=== PATIENT | male | born 1960 | race Caucasian/White ===

== ENCOUNTER 2020-08-15 09:12 | Outpatient (REF) | payer OTHER, SELFPAY | END 2020-08-15 09:13 | disposition home or self-care (01) | LOC: HO.LAB 09:12 | PROVIDERS: Visit Provider Internal Medicine | DX: Z20.822 Contact with and (suspected) exposure to COVID-19 (principal) | CPT/HCPCS: 36415; C9803; U0003 ==

== ENCOUNTER 2020-10-04 16:29 | Emergency (ER) | payer OTHER, SELFPAY ==
[2020-10-04 16:54] VITALS: BP 159/86; BP 166/86; PULSE 73; PULSE 76; RESP 17; TEMP 36.1; O2SAT 95; O2SAT 97; BMI 22.8
[2020-10-04 17:08] VITALS: BP 159/86; PULSE 73; RESP 17; TEMP 36.1; O2SAT 95
--- NOTE | 2020-10-04 17:34 | ED.GENADULT ---
HPI - General Adult General Chief complaint: General Medical Stated complaint: substance abuse, seeking detox Source: patient Mode of arrival: ambulatory Limitations: no limitations History of Present Illness HPI narrative: Patient presents to ED due to request for detox from benzos and heroin. Patient states he was clean and then started using heroin and Xanax today. Patient denies any other drug use or alcohol use. Patient states no suicidal ideation. Related Data Allergies Allergy/AdvReac Type Severity Reaction Status Date / Time cephalexin [From KEFLEX] Allergy Intermediate HIVES Unverified 04/24/20 15:38 sulfamethoxazole Allergy Intermediate HIVES Unverified 04/24/20 15:38 [From BACTRIM] trimethoprim [From BACTRIM] Allergy Intermediate HIVES Unverified 04/24/20 15:38 prochlorperazine Allergy Unknown ANAPHYLAXIS Unverified 04/24/20 15:38 [From COMPAZINE] Review of Systems Review of Systems: Yes all other systems are reviewed and are negative Constitutional: Constitutional: Reports as per HPI and Reports no additional constitutional complaints Eyes: Eyes: Reports as per HPI and Reports no additional eye complaints ENT: Reports system reviewed and no additional complaints, except as documented and Reports as per HPI Cardiovascular: Cardiovascular: Reports as per HPI and Reports no additional cardiovascular complaints Respiratory: Respiratory: Reports as per HPI and Reports no additional respiratory complaints Gastrointestinal: Gastrointestinal: Reports as per HPI and Reports no additional gastrointestinal complaints Genitourinary: Genitourinary: Reports no additional male genitourinary complaints and Reports as per HPI Musculoskeletal: Musculoskeletal: Reports no additional musculoskeletal complaints and Reports as per HPI Neurologic: Reports system reviewed and no additional complaints, except as documented and Reports as per HPI Psychiatric: Psychiatric: Reports no additional psychiatric complaints and Reports as per HPI Endocrine: Endocrine: Reports no additional endocrine complaints and Reports as per HPI [facility] Social History Social History Alcohol intake: never Smoking Status: Never smoker Use of substances other than those prescribed or required for medical reasons: Yes Substance Use Type: Heroin Substance Use Frequency: Recent Binge Last Used Substance: Hours (ago) Advance Directives: No Advance Directives Information Provided: No Physical Exam Vital Signs: Vital Signs: Last Vital Signs Temp 97 F 10/04/20 17:08 Pulse 73 10/04/20 17:08 Resp 17 10/04/20 17:08 BP 159/86 H 10/04/20 17:08 Pulse Ox 95 10/04/20 17:08 Body Mass Index 22.8 Const: General: cooperative, healthy appearing, comfortable, no acute distress, well developed, alert, awake and Physically active Orientation/consciousness: patient oriented x3 HENMT: Head: Yes normal to inspection, Yes No palpable skull fracture present, Yes normocephalic, Yes atraumatic, No abrasion, No Corrales's sign, No contusion, No cranial bruits, No hematoma, No laceration, No occipital foramen tenderness, No palpable skull fracture, No raccoon eyes, No scalp lesion, No scalp tenderness, No Temporal artery tenderness present and No periorbital ecchymosis Eyes: General: appearance normal, both eyes and all related structures Neck: Neck: Yes normal visual inspection, Yes full ROM, Yes no lymphadenopathy, Yes no meningeal signs, Yes trachea midline, Yes supple and No tender Chest: Chest palpation & inspection: normal inspection of the chest and normal palpation of entire chest wall Resp: Effort & Inspection: normal respiratory effort and able to speak in complete sentences Auscultation: clear to auscultation bilaterally Cardio: Jugular venous distension: no JVD Heart sounds: S1 normal heart sound present and S2 normal heart sound present GI: Inspection: Yes normal to inspection and No abdominal wall ecchymosis Palpation (GI): Soft to palpation, not firm, nontender, no guarding and not rigid : General: No CVA tenderness and Yes no CVA tenderness Back/Spine/Pelvis: Back: no CVA tenderness, No CVA tenderness and No back tenderness Skin: General skin exam: no rashes or lesions noted and elasticity normal Neuro: General: patient oriented x3, no meningeal signs and CN's II-XI intact bilaterally Cranial nerves: Yes CN's II-XII intact bilaterally Extrem: General: Yes normal to inspection and Yes full ROM Psych: Appearance: grossly normal, well kempt and not disheveled Course Course Course Narrative: Patient will have U tox sent. Detox evaluated will speak to patient. Patient presently not suicidal homicidal. No crisis intervention indicated. Vital signs stable. Reevaluation(s) Reevaluation #1: PATIENT EVALUATED BY [facility] CALLED JESSICA. HE STATES PATIENT HAS [facility]BOX[facility] CLINIC APPOINTMENT TOMORROW. INTERIOR DESIGN PROFESSIONAL JESSICA gave PATIENT DETOX OUTPATIENT RESOURCE PROGRAM HE COULD CALL FOR INPATIENT AFTER HE IS EVALUATED AND SEEN [facility] CLINIC AND RECEIVING SUBOXONE. PATIENT IS AGREEABLE TO PLAN. Time: 19:52 Medical Decision Making MDM Narrative Medical decision making narrative: SUBSTANCE ABUSE Lab Data Labs: Lab Results 10/04/20 Range/Units 17:52 Urine Opiates Screen POSITIVE H (Not Detect) Ur Barbiturates Screen Not Detected (Not Detect) Ur Phencyclidine Scrn Not Detected (Not Detect) Ur Amphetamines Screen Not Detected (Not Detect) U Benzodiazepines Scrn POSITIVE H (Not Detect) Urine Cocaine Screen POSITIVE H (Not Detect) U Marijuana (THC) Screen POSITIVE H (Not Detect) Discharge Plan Discharge Clinical Impression: Substance abuse Patient Disposition: Home, Self-Care Instructions: Polysubstance Abuse (ED) Additional Instructions: RETURN TO THE ED IMMEDIATELY FOR SUICIDAL/HOMICIDAL IDEATION, WITHDRAWAL SYMPTOMS, OR ANY OTHER CONCERNING SYMPTOMS. PLEASE FOLLOW-UP WITH DETOX PROGRAM GIVEN TO YOU BY ASSOCIATE MEDIA DIRECTOR Interventions: ED Discharge Assessment Last Done: 10/04/20 20:39 Discharge Date/Time: 10/04/20 20:41 Print Language: Amharic
[2020-10-04 18:36] LABS: Amphetamine Screen Urine Not Detected (Not Detect); Barbiturates, Urine Not Detected (Not Detect); Benzodiazepines Screen Urine POSITIVE (Not Detect); Cannabinoid Screen Urine POSITIVE (Not Detect); Cocaine Screen Urine POSITIVE (Not Detect); Opiate Screen Urine POSITIVE (Not Detect); Phencyclidine Screen Urine Not Detected (Not Detect)
--- NOTE | 2020-10-04 19:25 | PC.NURSE ---
Ned at bedside speaking with patient. Pt seeking detox. GRETEL Jones.
--- NOTE | 2020-10-04 19:38 | MHC.RECOVSUP ---
? Reason for consult : Detox o Current location: ED17H o Identified substance use concern: Heroin - Seeking ATS (detox) - Support ? Intervention: o Community resources provided o Harm reduction discussion ? Plan: o Patient to follow up with [facility] after discharge ? Additional information: patient Came to the ED seeking Detox. But decided that tomorrow would be better. Patient is on MAT at [facility] and patient stated that he feel that it would be best for him to go there first before go to detox. So i have provided patient with [facility] info and advised Patient to follow up there..
== END 2020-10-04 20:41 | disposition home or self-care (01) ==
PROVIDERS: Physician Assistant; Emergency Provider Emergency Medicine; PCP Internal Medicine
DX: F11.10 Opioid abuse, uncomplicated (principal); F19.10 Other psychoactive substance abuse, uncomplicated
CPT/HCPCS: 80307; 99283; 99284

== ENCOUNTER 2021-02-20 19:59 | Emergency (ER) | payer OTHER, SELFPAY ==
[2021-02-20 20:07] VITALS: BP 155/91; BP 166/98; PULSE 87; PULSE 97; RESP 18; TEMP 36.6; O2SAT 98; O2SAT 99; BMI 21.9
--- NOTE | 2021-02-20 20:15 | ED.OVERDOSE ---
HPI - Overdose General Chief Complaint: Overdose Stated Complaint: od Time Seen by Provider: 02/20/21 20:15 Source: patient and family Mode of arrival: EMS Limitations: no limitations History of Present Illness HPI Narrative: Patient stated that he took 1 bag of heroin was not responding EMS gave 4 mg of nasal Narcan and 0.4 mg IV Narcan back to baseline alert oriented x3 no vomiting no shortness of breath has happened many times in the past Related Data Allergies Allergy/AdvReac Type Severity Reaction Status Date / Time cephalexin [From KEFLEX] Allergy Intermediate HIVES Unverified 04/24/20 15:38 sulfamethoxazole Allergy Intermediate HIVES Unverified 04/24/20 15:38 [From BACTRIM] trimethoprim [From BACTRIM] Allergy Intermediate HIVES Unverified 04/24/20 15:38 prochlorperazine Allergy Unknown ANAPHYLAXIS Unverified 04/24/20 15:38 [From COMPAZINE] Review of Systems Review of Systems: Yes all other systems are reviewed and are negative [facility] Past Medical History Medical History Substance abuse Social History Social History Alcohol intake: never Substance Use Type: Heroin Advance Directives: No Advance Directives Information Provided: No Physical Exam Vital Signs: Vital Signs: Last Vital Signs Temp 97.9 F 02/20/21 20:07 Pulse 87 02/20/21 20:07 Resp 18 02/20/21 20:07 BP 166/98 H 02/20/21 20:07 Pulse Ox 98 02/20/21 20:07 Body Mass Index 21.9 Appearance: Alert. Oriented X3. No acute distress. Eyes: PERRLA, No Nystagmus ENT: Pharynx normal. Oral Mucosa moist Neck: Normal inspection. Neck supple. CVS: Normal heart rate and rhythm. Pulses normal. Respiratory: No respiratory distress. Equal air entry bilateral, no wheezing/rales/rhonchi Abdomen: Soft and nontender. Bowel sounds are present Skin: Skin warm and dry. Normal skin color. Normal skin turgor. Extremities: No lower extremity edema. No calf tenderness Neuro: Oriented X 3. No motor deficit. No sensory deficit.No cerebellar signs , cranial nerves II-XII intact MDM - Overdose MDM Narrative Medical decision making narrative: Patient refused to stay in the ER is at bedside will give him Narcan to take home advised to keep an eye on the patient for 2 hours at least and if became drowsy given Narcan and bring to the ER aware of the plan discharge patient home Discharge Plan Discharge Clinical Impression: Opiate dependence Patient Disposition: Home, Self-Care Instructions: Narcotic Use Disorder (ED) Additional Instructions: Stop abusing heroin follow up with detox Interventions: ED Discharge Assessment Last Done: 02/20/21 20:22 Discharge Date/Time: 02/20/21 20:24
--- NOTE | 2021-02-20 20:21 | MHC.RECOVSUP ---
? Reason for consult Overdose o Current location: 22h o Identified substance use concern: heroin - Overdose <del>-</del> <del>Withdrawal</del> <del>-</del> <del>Seeking</del> <del>ATS</del> <del>(detox)</del> <del>-</del> <del>Support</del> ? Intervention: <del>o</del> <del>ATS</del> <del>bed</del> <del>search</del> <del>started/completed/in</del> <del>process</del> <del>o</del> <del>MAT</del> <del>started</del> <del>or</del> <del>to</del> <del>be</del> <del>started</del> <del>o</del> <del>Community</del> <del>resources</del> <del>provided</del> <del>o</del> <del>Harm</del> <del>reduction</del> <del>discussion</del> ? Plan: <del>o</del> <del>Referral</del> <del>to</del> <del>[facility]</del> <del>o</del> <del>Bed</del> <del>search</del> <del>in</del> <del>progress</del> <del>to</del> <del>o</del> <del>Follow</del> <del>up</del> <del>tomorrow</del> <del>o</del> <del>Patient</del> <del>awaiting</del> <del>crisis</del> <del>evaluation</del> <del>o</del> <del>Patient</del> <del>to</del> <del>follow</del> <del>up</del> <del>with</del> <del>[facility]</del> <del>after</del> <del>discharge</del> ? Additional information: Patient refused services
--- NOTE | 2021-02-20 20:23 | PC.NURSE ---
Recovery couch at bedside- pt declined detox.
== END 2021-02-20 20:24 | disposition home or self-care (01) ==
PROVIDERS: Emergency Provider Internal Medicine; PCP Internal Medicine
DX: F11.20 Opioid dependence, uncomplicated (principal)
CPT/HCPCS: 99283

== ENCOUNTER 2021-03-19 12:36 | Emergency (ER) | payer OTHER, SELFPAY ==
--- NOTE | 2021-03-19 12:45 | ED.OVERDOSE ---
HPI - Overdose General Chief Complaint: Overdose Stated Complaint: overdose Time Seen by Provider: 03/19/21 12:40 Source: patient and EMS Mode of arrival: EMS Limitations: no limitations History of Present Illness HPI Narrative: 60-year-old male with a past medical history of substance abuse. The patient tells me he sniffs some heroin today. He was found by EMS unresponsive. Required 4 mg of Narcan prior to arrival. On arrival alert and oriented. Heroin but will not quantify how much. He denies any additional substance use. He tells me he uses heroin multiple times in a week but not always daily. Not interested in detox. No physical complaints. Related Data Allergies Allergy/AdvReac Type Severity Reaction Status Date / Time cephalexin [From KEFLEX] Allergy Intermediate HIVES Unverified 04/24/20 15:38 sulfamethoxazole Allergy Intermediate HIVES Unverified 04/24/20 15:38 [From BACTRIM] trimethoprim [From BACTRIM] Allergy Intermediate HIVES Unverified 04/24/20 15:38 prochlorperazine Allergy Unknown ANAPHYLAXIS Unverified 04/24/20 15:38 [From COMPAZINE] Review of Systems Review of Systems: Yes all other systems are reviewed and are negative Constitutional: Constitutional: Reports no additional constitutional complaints, Denies body ache(s), Denies chills, Denies fever(s), Denies headache(s) and Denies weakness Eyes: Eyes: Reports no additional eye complaints and Denies change in vision ENT: Reports system reviewed and no additional complaints, except as documented, Denies dizziness, Denies headache(s), Denies nasal congestion, Denies nasal discharge and Denies neck pain Cardiovascular: Cardiovascular: Reports no additional cardiovascular complaints, Denies chest pain, Denies leg edema and Denies dyspnea Respiratory: Respiratory: Reports no additional respiratory complaints, Denies cough and Denies dyspnea Gastrointestinal: Gastrointestinal: Reports no additional gastrointestinal complaints, Denies abdominal pain, Denies diarrhea, Denies nausea and Denies vomiting Genitourinary: Genitourinary: Denies urinary incontinence Musculoskeletal: Musculoskeletal: Reports no additional musculoskeletal complaints, Denies back pain, Denies arthralgias, Denies joint swelling, Denies neck pain, Denies numbness and Denies tingling Integumentary/Breasts: Skin/Breast: Reports system reviewed and no additional complaints, except as docu and Denies rash Neurologic: Reports system reviewed and no additional complaints, except as documented, Denies Abnormal speech present, Denies dizziness, Denies headache(s), Denies numbness, Denies tingling and Denies weakness PMFSH Past Medical History Attestation statement: The following information was validated with the patient. Source: old records reviewed and nursing notes reviewed Medical History Substance abuse Social History Social History Alcohol intake: never Substance Use Type: Heroin Advance Directives: No Advance Directives Information Provided: Yes Physical Exam Vital Signs: Vital Signs: Last Vital Signs Temp 98.2 F 03/19/21 12:49 Pulse 83 03/19/21 12:49 BP 145/84 H 03/19/21 12:49 Pulse Ox 96 03/19/21 12:49 Body Mass Index 23.3 Const: General: cooperative, healthy appearing, comfortable and no acute distress Orientation/consciousness: patient oriented x3 Limitations: no limitations HENMT: Head: Yes normal to inspection Ears: hearing grossly normal bilaterally General nose exam: Normal external nose present Face and sinus: Yes normal facial exam Mouth: Normal oral and palatal mucosa present Throat: Yes posterior oropharynx normal Eyes: General: appearance normal, both eyes and all related structures Pupils: Equal, round and reactive pupils present Neck: Neck: Yes normal visual inspection Chest: Chest palpation & inspection: normal inspection of the chest Resp: Effort & Inspection: normal respiratory effort Auscultation: clear to auscultation bilaterally Cardio: Rate: regular rate Rhythm: regular rhythm Peripheral pulses: Peripheral pulses 2+ throughout GI: Inspection: Yes normal to inspection Palpation (GI): Soft to palpation and nontender Auscultation: normal bowel sounds Back/Spine/Pelvis: Thoracic/Lumbar Spine: thoracic and lumbar spine normal to inspection Skin: General skin exam: no rashes or lesions noted Neuro: General: patient oriented x3, no focal motor deficits and normal sensation to monofilament Cranial nerves: Yes Equal, round and reactive pupils present Cognition (Neuro): normal cognition Speech: No Abnormal speech present Gait exam (Neuro): Normal gait present Motor exam (neuro): 5/5 motor strength present throughout Extrem: General: Yes normal to inspection Course Course Course Narrative: 60-year-old male here after a heroin overdose that required Narcan in the field. Patient currently alert and oriented. No physical complaints. Not interested in detox resources. Vital signs are stable. Will monitor for brief time. -patient refused to stay in the emergency department for monitoring. He is alert oriented. He has stable vital signs. He walks with a steady gait. He was given Narcan for home. Reviewed worrisome signs and symptoms of when to return to the emergency department. Comfortable discharge home. MDM - Overdose Medical Records Attestation: I reviewed the patient's medical records. Lab Data Attestation: I reviewed the patient's lab results. Discharge Plan Discharge Clinical Impression: Drug overdose Patient Disposition: Home, Self-Care Instructions: Adult Overdose (ED), Narcotic Use Disorder (ED) Additional Instructions: You were offered assistance but he declined this Interventions: ED Discharge Assessment Last Done: 03/19/21 13:20 Discharge Date/Time: 03/19/21 13:21
[2021-03-19 12:49] VITALS: BP 145/84; BP 150/70; PULSE 100; PULSE 83; TEMP 36.8; O2SAT 96; O2SAT 98; BMI 23.3
[2021-03-19] MEDS: Naloxone HCl Nasal TAKE HOME 4 MG SPRAY NOSTRILALT (13:19)
== END 2021-03-19 13:21 | disposition home or self-care (01) ==
LOC: HO.ED 13:17
PROVIDERS: Emergency Provider Emergency Medicine; PCP Internal Medicine
DX: T40.1X1A Poisoning by heroin, accidental (unintentional), initial encounter (principal); R40.4 Transient alteration of awareness; Y92.410 Unspecified street and highway as the place of occurrence of the external cause; F19.10 Other psychoactive substance abuse, uncomplicated
CPT/HCPCS: 99283

== ENCOUNTER 2021-07-20 08:50 | Emergency (ER) | payer OTHER, SELFPAY ==
--- NOTE | 2021-07-20 08:49 | ED.OVERDOSE ---
HPI - Overdose General Chief Complaint: ETOH/Substance Use Stated Complaint: HEROIN OD,NARCNA GIVEN W/GOOD RESULT Time Seen by Provider: 07/20/21 09:24 Source: patient Mode of arrival: EMS Limitations: no limitations History of Present Illness HPI Narrative: 57-year-old male no known medical history presents to the emergency department with a heroin overdose with EMS. Patient's significant other called 911, as patient was unresponsive. Patient admits to sniffing 1 bag of heroin prior to his arrival. He tells me he has not used heroin in over 7 months. He tells me he did it because he found it around house. He has no suicidal or homicidal ideation. Patient has no complaints at this time he tells me he wants to leave. He denies depression or anxiety. No visual, auditory or tactile hallucinations. No medical concerns at this time. complaint: accidental overdose Onset (ago): minute(s) (20) Intent: unknown How Overdose Was Discovered: called family/friend Context: Intentional Overdose: other (denies) Context: Accidental Overdose: wanted to get high Treatments Prior to Arrival: narcan Related Data Previous Rx's Medication Instructions Recorded naloxone 4 mg/actuation nasal 4 mg INTRANASAL Q3M PRN #2 ea 07/20/21 spray (Narcan) Allergies Allergy/AdvReac Type Severity Reaction Status Date / Time cephalexin [From KEFLEX] Allergy Intermediate HIVES Unverified 04/24/20 15:38 sulfamethoxazole Allergy Intermediate HIVES Unverified 04/24/20 15:38 [From BACTRIM] trimethoprim [From BACTRIM] Allergy Intermediate HIVES Unverified 04/24/20 15:38 prochlorperazine Allergy Unknown ANAPHYLAXIS Unverified 04/24/20 15:38 [From COMPAZINE] Review of Systems Review of Systems: Constitutional : No Fever, No Chills ENT/Mouth : No sore throat, No Rhinorrhea Eyes: No Eye Pain, No Swelling, No Redness Cardiovascular : No Chest Pain, No SOB Respiratory : No Cough, No Sputum Gastrointestinal : No Nausea, No Vomiting, No Diarrhea, No abdominal Pain Genitourinary : No Dysuria, No Hematuria Musculoskeletal : No joint pain, No Myalgias, No Joint Swelling Skin : No Skin Lesions, No rash Neuro : No Weakness, No Numbness Psych : No Anxiety, No Depression, No SI/HI/AH/VH Heme/Lymph: No Bruising, No Bleeding Endocrine : No Polyuria, No Polydipsia All other systems reviewed and are negative Yes all other systems are reviewed and are negative [facility] Past Medical History Attestation statement: The following information was validated with the patient. Source: old records reviewed and nursing notes reviewed Medical History Substance abuse Social History Social History Alcohol intake: never Substance Use Type: Heroin Advance Directives: No Advance Directives Information Provided: No Physical Exam Vital Signs: Vital Signs: Last Vital Signs Temp 98.5 F 07/20/21 09:03 Pulse 102 H 07/20/21 09:03 Resp 18 07/20/21 09:03 BP 134/88 07/20/21 09:03 Pulse Ox 100 07/20/21 09:03 BMI result Body Mass Index 20.9 VSS Appearance: Alert.? Oriented X3.? No acute distress.? Head: Normocephalic, atraumatic, no step-offs or deformities Eyes: Pupils equal, round and reactive to light.?+pinpoint pupils ENT: Pharynx normal.? Neck: Normal inspection.? Neck supple.? CVS: Normal heart rate and rhythm.? Pulses normal.? Respiratory: No respiratory distress.? Breath sounds normal.? Abdomen: Soft and nontender.? Skin: Skin warm and dry.? Normal skin color.? Normal skin turgor.? Extremities: No lower extremity edema.? No calf ttp. 5/5 strength to bilateral upper and lower extremities Back: No midline tenderness, no C-spine tenderness, full range of motion, no CVA tenderness bilaterally Neuro: Oriented X 3.? No motor deficit.? No sensory deficit. CN 2-12 intact Course Reevaluation(s) Reevaluation #1: James spoke to patient about [facility] [place]. Patient doesnt want any other resources at this time. Time: 09:24 Reevaluation #2: Patient with stable vitals, significant other at the bedside. I have educated patient about resources, such as [facility] [place] as mentioned to him by James earlier today. Patient is still refusing detox. Patient is not suicidal or homicidal. I feel comfortable with him getting discharged home. I have sent Narcan to his family and have educated him on how to properly use it. Comfortable discharge home with PCP follow-up. Time: 10:34 MDM - Overdose MDM Narrative Medical decision making narrative: [id number] 57-year-old male with no known medical history presents to the emergency department with heroin overdose, patient tells me he snorted 1 bag of heroin this morning, and called EMS, he tells me he just wanted to use, he has not used in 7 months, found it around the house. No SI or HI. EMS gave patient 4 mg of intranasal Narcan with success. Patient tells me that he was not using heroin for a while, and he does not want any resources at this time Upon physical examination patient appears well, vital signs are stable. Pupils are pinpoint. Lungs are clear. Regular rate and rhythm. Abdomen soft nontender nondistended. No focal neuro deficits. Plan at this time is to monitor the patient. Differential Diagnosis Differential diagnosis: Likely drug overdose Medical Records Attestation: I reviewed the patient's medical records. Lab Data Attestation: I reviewed the patient's lab results. Critical Care Time Critical Care Time Critical Care Time: No Discharge Plan Discharge Clinical Impression: Overdose opiate Qualifiers: Encounter type: initial encounter Injury intent: accidental or unintentional Qualified Code(s): T40.601A - Poisoning by unspecified narcotics, accidental (unintentional), initial encounter Patient Disposition: Home, Self-Care Instructions: Opioid Use Disorder (ED) Additional Instructions: Take your medications as prescribed. Please stop using drugs as this can kill you. We gave you information about [facility]. Follow-up with your primary care provider this week. Return to the emergency department with new or worsening symptoms. In case of emergency call 911 Prescriptions: New Narcan 4 mg/actuation spray,non-aerosol 4 mg intranasal Q3M PRN (Reason: opioid overdose) Qty: 2 RF: 0 Referrals: Zena Fontana DO [Primary Care Provider] - 2 days
[2021-07-20 09:01] VITALS: BP 134/88
[2021-07-20 09:03] VITALS: BP 134/88; PULSE 102; RESP 18; TEMP 36.9; O2SAT 100; BMI 20.9
--- NOTE | 2021-07-20 09:11 | MHC.RECOVSUP ---
Recovery Support note: Patient is a 60 year old Guyanese speaking male who presented to [facility] ED after an accidental overdose. This automobile and property underwriter met with patient to discuss substance use and recovery supports. Patient reports he was sober for 8 months and that he found a bag and decided to use it. Patient expresses regret over this decision and is requesting to leave. Patient reports he has been on MAT in the past however is not at this time. Patient is not interested in recovery resources and declines SUDE assessment. Patient is staying with his brother in [place]. Discussed [facility] [place] and encouraged patient to go there to meet people in recovery. Patient acknowledged. Discussed case with patient's ED provider.
== END 2021-07-20 10:40 | disposition home or self-care (01) ==
LOC: HO.ED 09:20
PROVIDERS: Emergency Provider Emergency Medicine; PCP Internal Medicine
DX: T40.1X1A Poisoning by heroin, accidental (unintentional), initial encounter (principal); Y92.9 Unspecified place or not applicable
CPT/HCPCS: 99283

== ENCOUNTER 2024-04-15 09:04 | Emergency (ER) | payer OTHER, SELFPAY ==
--- NOTE | ~2024-04-15 | XR_ITS ---
EXAMINATION: XR CHEST CLINICAL INFORMATION: Shortness of breath COMPARISON: None available at the time of interpretation TECHNIQUE: 2 views of the chest were obtained. FINDINGS: Clear lungs. No pleural effusion or pneumothorax. Cardiomediastinal silhouette is unchanged. XR/XR chest 2V IMPRESSION: No acute cardiopulmonary abnormality. Electronically signed by: Yonathan Jones MD 04/15/2024 10:04 AM EDT
[2024-04-15 09:06] VITALS: BP 170/110; PULSE 75; RESP 19; TEMP 36.6; O2SAT 97; BMI 24.1
[2024-04-15 10:11] LABS: Influenza A PCR NEGATIVE (Negative); Influenza B PCR NEGATIVE (Negative); Resp Syncy Virus RNA Qual PCR NEGATIVE (Negative); SARS COV2 PCR INHOUSE NEGATIVE (Negative)
--- NOTE | 2024-04-15 10:12 | ECG_ITS ---
Test Reason : sob Blood Pressure : / mmHG Vent. Rate : 062 BPM Atrial Rate : 062 BPM P-R Int : 202 ms QRS Dur : 094 ms QT Int : 438 ms P-R-T Axes : 046 -29 044 degrees QTc Int : 444 ms Normal sinus rhythm Normal ECG When compared with ECG of 19-NOV-2014 18:43, Vent. rate has decreased BY 43 BPM Criteria for Inferior infarct are no longer Present QT has shortened Left anterior fascicular block is no longer Present Referred By: Lacey Clemente Electronically Signed By:TYREE SANCHES
--- NOTE | 2024-04-15 10:12 | ED_ITS ---
HPI - URI/Sore Throat General Chief Complaint: Upper Respiratory Symptoms Stated Complaint: Diff breathing Time Seen by Provider: 04/15/24 09:12 Source: patient, RN notes reviewed and old records reviewed Mode of arrival: ambulatory History of Present Illness ED Provider: Lacey Clemente PA-C HPI Narrative: 63-year-old male with past medical history of substance abuse, asthma/COPD, HTN presenting to the ED complaining of dry cough, subjective fever, congestion, SOB, chest discomfort when coughing x4 days. Has been using nebulizer and inhaler at home without relief. Denies sore throat, abdominal pain, recent tr estelita, sick contacts, pedal edema Related Data Previous Rx's ?Medication ?Instructions ?Recorded naloxone 4 mg/actuation nasal 4 mg intranasal Q3M PRN opioid 07/20/21 spray (Narcan) overdose #2 ea prednisone 20 mg tablet 40 mg (2 x 20 mg) PO DAILY 5 days 04/15/24 #10 tabs Allergies Allergy/AdvReac Type Severity Reaction Status Date / Time cephalexin [From KEFLEX] Allergy Intermediate HIVES Verified 04/15/24 09:07 sulfamethoxazole Allergy Intermediate HIVES Verified 04/15/24 09:07 [From BACTRIM] trimethoprim [From BACTRIM] Allergy Intermediate HIVES Verified 04/15/24 09:07 prochlorperazine Allergy Unknown ANAPHYLAXIS Verified 04/15/24 09:07 [From COMPAZINE] Review of Systems Review of Systems: Yes all other systems are reviewed and are negative Constitutional: Constitutional: Reports as per [facility] Past Medical History Attestation statement: The following information was validated with the patient. Source: old records reviewed Medical History Substance abuse Social History Social History Alcohol intake: never Substance Use Type: Heroin Advance Directives: No Advance Directives Information Provided: Yes Do you have a plan to hurt others: No Plan Physical Exam Vital Signs: Vital Signs: Last Vital Signs Temp 98 F 04/15/24 09:06 Pulse 78 04/15/24 10:29 Resp 18 04/15/24 10:29 BP 170/110 H 04/15/24 09:06 Pulse Ox 97 04/15/24 09:06 BMI result Body Mass Index 24.1 Const: General: cooperative, healthy appearing and no acute distress Orientation/consciousness: patient oriented x3 Limitations: no limitations HEENT: Head: Yes normal to inspection and Yes atraumatic Ears: hearing grossly normal bilaterally General nose exam: Normal external nose present Face and sinus: Yes normal facial exam Throat: Yes posterior oropharynx normal, Yes tonsils normal, Yes uvula midline, No peritonsillar mass, No uvula laterally displaced and No uvular edema Eyes: General: appearance normal, both eyes and all related structures EOM: EOMs intact bilaterally Neck: Neck: Yes normal visual inspection and Yes no meningeal signs Resp: Effort & Inspection: normal respiratory effort and no respiratory distress Auscultation: clear to auscultation bilaterally and no wheezes Cardio: Rate: regular rate Heart sounds: S1 normal heart sound present and S2 normal heart sound present GI: Inspection: Yes normal to inspection Palpation (GI): Soft to palpation, nontender, no guarding and not rigid Skin: Rashes: no rashes Wounds: no wounds Neuro: General: patient oriented x3, tone normal and no meningeal signs Cranial nerves: Yes CN's II-XII intact bilaterally Gait exam (Neuro): Normal gait present Extrem: General: Yes normal to inspection, Yes no pedal edema and Yes no calf tenderness Course Course Course Narrative: -viral studies negative XR chest 2V IMPRESSION: No acute cardiopulmonary abnormality. Blood pressure improved on repeat after home clonidine given. Results discussed with patient including worrisome signs and symptoms and strict return precautions, and when to return to the emergency department. They verbalized understanding and feel safe for discharge at this time. Medications Administered Discontinued Medications Generic Name Dose Route Start Last Admin Trade Name Freq PRN Reason Stop Dose Admin Albuterol/Ipratropium 3 ml 04/15/24 10:12 04/15/24 10:27 Albuterol/Iprat 2.5/0.5mg 3 Ml Ampul.Neb INHALE 04/15/24 10:13 3 ml ONCE ONE Administration Clonidine HCl 0.2 mg 04/15/24 10:18 04/15/24 10:40 Clonidine Hcl 0.2 Mg Tablet PO 04/15/24 10:19 0.2 mg ONCE ONE Administration Protocol Medical Decision Making Medical Decision Making MDM Narrative: 63-year-old male with past medical history of substance abuse, asthma/COPD, HTN presenting to the ED complaining of dry cough, subjective fever, congestion, SOB, chest discomfort when coughing x4 days. On exam hypertensive (did not take BP medication this morning), NAD, nontoxic appearing, talking in complete sentences, lungs CTA, no pedal edema. Concern for viral illness vs pneumonia vs asthma/COPD exacerbation. Lower suspicion for CHF, PE, ACS Plan: EKG, CXR, viral testing, albuterol neb, re-evaluate Please refer to course for remaining clinical decision making, interpretation of labs/imaging results, and discussions with consultants and/or family members. Differential Diagnosis Differential Diagnoses: The differential diagnosis associated with the presentation includes As above Admission/Observation Consideration of admission/observation: Escalation of care including admis silverio/observation considered Lab Data MDM Lab Attestation statement: I reviewed the patient's lab results. Labs: Lab Results 04/15/24 Range/Units 09:15 Influenza Type A (PCR) NEGATIVE (Negative) Influenza Type B (PCR) NEGATIVE (Negative) RSV RNA Qual (PCR) NEGATIVE (Negative) SARS-CoV-2 RNA (RT-PCR) NEGATIVE (Negative) Independent Interpretation I performed an independent interpretation of an: Plain X-Ray Radiology Impression Discussion of test interpretation with radiology: I have reviewed the radiologist's reading. External Record Review External record reviewed: Inpatient record, Office record, Outpatient record, Prior outpatient labs, Prior outpatient radiology, Primary care record and Outsi de ED record Tests considered The following testing was considered but not selected: As above Chronic Conditions Patient?s care impacted by: Other (Substance abuse, COPD/asthma) Social Determinants Patient?s care significantly limited by Social Determinants of Health including: Low income, Alcoholism and drug addiction in family and Problems related to primary support group Discharge Plan Discharge Clinical Impression: Upper respiratory infection, Bronchitis Patient Disposition: Home, Self-Care Instructions: Upper Respiratory Infection (DC), Acute Bronchitis (ED) Additional Instructions: Your x-ray is unremarkable You tested negative for COVID, flu, RSV Prednisone as a steroid please take as prescribed Continue to use your inhaler and nebulizer machine at home Follow-up with her doctor If symptoms persist or worsen return to the ED Your blood pressure is very high today in the emergency department, make sure you are taking her blood pressure medication daily Prescriptions: New prednisone 20 mg tablet 40 mg PO DAILY 5 Days Qty: 10 0RF No Action Narcan 4 mg/actuation spray,non-aerosol 4 mg intranasal Q3M PRN (Reason: opioid overdose) Qty: 2 0RF Rx Instructions: spray 1 dose into ONE nostril; alternate nostrils w each dose until help arrives Referrals: Trevor Gray III, MD [Primary Care Provider] - 3 days Print Language: Icelandic
[2024-04-15] MEDS: Albuterol/Iprat 2.5/0.5MG 3 ML AMPUL.NEB INHALE (10:27)
[2024-04-15 10:29] VITALS: PULSE 78; RESP 18; O2SAT 98
[2024-04-15] MEDS: cloNIDine HCL 0.2 MG TABLET PO (10:40)
[2024-04-15 11:19] VITALS: BP 159/95
[2024-04-15 11:36] VITALS: BP 159/95; PULSE 0; RESP 0; TEMP -17.7; TEMP 0; O2SAT 0
== END 2024-04-15 11:37 | disposition home or self-care (01) ==
PROVIDERS: Emergency Provider Emergency Medicine Emergency Medical Services; PCP Internal Medicine
DX: R06.02 Shortness of breath (principal); I10 Essential (primary) hypertension; R05.9 Cough, unspecified; R50.9 Fever, unspecified; R07.89 Other chest pain; Z79.899 Other long term (current) drug therapy; Z03.818 Encounter for observation for suspected exposure to other biological agents ruled out
CPT/HCPCS: 0241U; 71046; 93005; 94640; 99284

== ENCOUNTER 2024-09-29 10:29 | Emergency (ER) | payer OTHER, SELFPAY ==
--- NOTE | ~2024-09-29 | XR_ITS ---
CLINICAL HISTORY: pain 4 view right shoulder Comparison: None Findings: No fractures or dislocations. No significant loss of joint space or osteophytes. Small bone island within the humeral head. No erosions. No radiopaque foreign body. IMPRESSION: 1. No acute findings This document has been electronically signed by: Chon Jones MD on 09/29/2024 12:18:05
[2024-09-29 11:05] VITALS: BP 169/105; PULSE 72; RESP 18; TEMP 36.6; O2SAT 98; BMI 24.4
--- NOTE | 2024-09-29 11:06 | ED_ITS ---
HPI - General Adult General Chief complaint: Extremity Injury, Upper Stated complaint: R shoulder pain x 1 week Time Seen by Provider: 09/29/24 14:10 Source: patient Mode of arrival: ambulatory Limitations: no limitations History of Present Illness ED Provider: Cadence Canchola PA-C HPI narrative: Patient is a 64 year old assigned male at with no reported medical history presenting to the emergency department today with right shoulder pain. Patient states that over the last week he has had right shoulder pain that is not getting better. Patient states that it hurts worse when he tries to lift his right shoulder. Patient denies any dizziness, lightheadedness, abdominal pain, nausea, vomiting, fever, chills, blurry vision, double vision, loss of vision, chest pain, difficulty breathing, shortness of breath, back pain, night sweats, pain with urination, increased urinary frequency, increased urinary urgency, blood in his urine or stool, syncope or a near syncopal episode, recent trauma or falls, bowel incontinence, bladder incontinence, or any other complaints at this time. Onset (ago): week(s) (1) Location: right and upper extremity Relieving factors: none Exacerbating factors: movement Associated symptoms: denies other symptoms Treatments prior to arrival: none Related Data Previous Rx's ?Medication ?Instructions ?Recorded naloxone 4 mg/actuation nasal 4 mg intranasal Q3M PRN opioid 07/20/21 spray (Narcan) overdose #2 ea prednisone 20 mg tablet 40 mg (2 x 20 mg) PO DAILY 5 days 04/15/24 #10 tabs prednisone 20 mg tablet See Rx Instructions .Route 09/29/24 .COMPLEX 12 days #26 tabs Allergies Allergy/AdvReac Type Severity Reaction Status Date / Time cephalexin [From KEFLEX] Allergy Intermediate HIVES Verified 09/29/24 11:08 sulfamethoxazole Allergy Intermediate HIVES Verified 09/29/24 11:08 [From BACTRIM] trimethoprim [From BACTRIM] Allergy Intermediate HIVES Verified 09/29/24 11:08 prochlorperazine Allergy Unknown ANAPHYLAXIS Verified 09/29/24 11:08 [From COMPAZINE] Review of Systems 2 Constitutional: Constitutional: Reports no additional constitutional complaints, Denies chills, Denies fever(s) and Denies night sweats Eyes: Eyes: Reports no additional eye complaints, Denies blurry vision, Denies change in vision, Denies diplopia, Denies eye discharge, Denies loss of vision and Denies eye pain ENT: Denies dizziness Cardiovascular: Cardiovascular: Reports no additional cardiovascular complaints, Denies chest pain, Denies lightheadedness, Denies Loss of Consciousness and Denies dyspnea Respiratory: Respiratory: Reports no additional respiratory complaints and Denies dyspnea Gastrointestinal: Gastrointestinal: Reports no additional gastrointestinal complaints, Denies abdominal pain, Denies melena, Denies hematochezia, Denies change in bowel habits and Denies change in stool character Genitourinary: Genitourinary: Reports no additional male genitourinary complaints, Denies hematuria, Denies oliguria, Denies difficulty urinating, Denies dysuria, Denies urinary frequency, Denies urinary hesitancy, Denies urinary incontinence and Denies urinary urgency Musculoskeletal: Musculoskeletal: Reports no additional musculoskeletal complaints, Denies numbness and Denies tingling Comments: right shoulder pain Neurologic: Denies dizziness, Denies loss of vision, Denies numbness and Denies tingling Psychiatric: Psychiatric: Reports no additional psychiatric complaints Endocrine: Endocrine: Reports no additional endocrine complaints Hematologic/Lymphatic: Hematologic/Lymphatic: Reports no additional hematologic/lymphatic complaints Allergic/Immunologic: Allergic/Immunologic: Reports no additional allergic/immunologic complaints [facility] Past Medical History Attestation statement: The following information was validated with the patient. Source: old records reviewed and nursing notes reviewed Medical History Substance abuse Social History Social History Alcohol intake: never Substance Use Type: Heroin Advance Directives: No Advance Directives Information Provided: No Do you have a plan to hurt others: No Plan Physical Exam ED Vital Signs: Vital Signs - 24 hr 09/29/24 11:05 09/29/24 14:18 Temperature 97.9 F 97.9 F Pulse Rate 72 72 Respiratory Rate 18 18 Blood Pressure 169/105 H 169/105 H Pulse Oximetry 98 98 Oxygen Delivery Method Room Air Room Air BMI result Body Mass Index 24.4 Const General: cooperative, no acute distress, alert and awake Nutritional Appearance: well nourished Orientation/consciousness: patient oriented x3 Limitations: no limitations HENMT Head: Yes normal to inspection and Yes atraumatic Ears: hearing grossly normal bilaterally and external ears normal General nose exam: Normal external nose present, no nasal discharge noted and no epistaxis Face and sinus: Yes normal facial exam, No abrasion and No laceration Mouth: Normal oral and palatal mucosa present, no drooling and no muffled voice Eyes General: appearance normal, both eyes and all related structures Periorbital: periorbital findings normal Eyelids: Yes eyelids normal Conjunctivae: conjunctivae normal Pupils: Equal, round and reactive pupils present EOM: EOMs intact bilaterally Neck Neck: Yes normal visual inspection, Yes full ROM and Yes no lymphadenopathy Chest Chest palpation & inspection: normal inspection of the chest Resp Effort & Inspection: normal respiratory effort and able to speak in complete sentences GI Inspection: Yes normal to inspection Neuro General: patient oriented x3, moves all extremities and CN's II-XI intact bilaterally Cranial nerves: Yes Equal, round and reactive pupils present Cognition (Neuro): normal cognition Extrem Other: limited range of motion of the right shoulder secondary to pain General: Yes normal to inspection and Yes capillary refill normal Psych Appearance: grossly normal Mental Status: mental status grossly normal Affect: normal affect Attitude: cooperative Thought process: Normal thought process present Thought content: Normal thought content present Insight: Good insight present (Psych) Course Course Course Narrative: RME performed by Cadence Canchola PA-C. Patient is a 64 year old assigned male at presenting to the emergency department with right shoulder pain. Patient states a week and a half ago he would up with right shoulder pain that goes down his arm. Patient states that it is increasingly difficult to sleep because of it. Patient denies any trauma. Detailed physical exam and review of systems are deferred to the gaming host. EKG, labs, and imaging ordered. Patient placed back in the waiting room pending room availability and results. Medical Decision Making Medical Decision Making MDM Narrative: Patient is a 64 year old assigned male at with no reported medical history presenting to the emergency department today with right shoulder pain. Patient's physical exam was as noted in the physical exam portion of this note. Patient's exam is most consistent with a right rotator cuff injury. Patient's blood work was unremarkable. Patient's EKG was unremarkable. Patient's right shoulder x-ray showed no acute process. I explained my physical exam findings as well as all test results to the patient. I answered all questions asked by the patient. I stressed the importance of the patient taking his medication as directed (either prescribed or as the over the counter packaging recommends). I stressed the importance of the patient following up with his primary care provider and an orthopedic provider. I stressed the importance of the patient returning to the emergency department immediately if his symptoms were to worsen or if he were to develop any dizziness, shortness of breath, difficulty breathing, chest pain, blurry vision, loss of vision, nausea, vomiting, abdominal pain, fever, chills, back pain, or any other complaints. Patient verbalized agreement and understanding with this treatment plan and discharge. Differential Diagnosis Differential Diagnoses: The differential diagnosis associated with the presentation includes Right rotator cuff injury NSTEMI NM Admission/Observation Consideration of admission/observation: Escalation of care including admission/observation considered Patient would have been admitted to the hospital had his work up had any findings where hospital admission was appropriate and his clinical presentation warranted hospital admission. Lab Data [facility] Lab Attestation statement: I reviewed the patient's lab results. My interpretation of these results are in the [facility] Rationale portion of this note. 09/29/24 11:19 09/29/24 11:19 Labs: Lab Results 09/29/24 Range/Units 11:19 WBC 6.4 (4.8-10.8) X10*3/uL RBC 5.20 (4.60-5.80) X10*6/uL Hgb 16.4 (14.0-18.0) g/dl Hct 44.8 (42.0-52.0) % MCV 86.2 (80.0-98.0) fL MCH 31.5 (27.0-33.0) pg MCHC 36.6 H (31.0-36.0) g/dl RDW 12.4 (11.0-16.0) % Plt Count 160 (160-400) X10*3/uL MPV 9.4 (9.4-12.4) fL Immature Gran % (Auto) 0.3 (0.0-0.4) % Neut % (Auto) 69.0 (45-73) % Lymph % (Auto) 23.9 (20-40) % [place] % (Auto) 6.3 (2-11) % Eos % (Auto) 0.3 (0-4) % Baso % (Auto) 0.2 (0-2) % Lymph # (Auto) 1.5 (1.2-4.9) X10*3/uL [place] # (Auto) 0.4 (0.1-1.2) X10*3/uL Eos # (Auto) 0.0 (0.0-0.4) X10*3/uL Baso # (Auto) 0.0 (0.0-0.2) X10*3/uL Abs Immat Gran (auto) 0.02 (0.00-0.03) X10*3/uL Absolute Neuts (auto) 4.4 (2.0-8.3) x10*3/uL Absolute Nucleated RBC 0.000 (0.0-0.012) X10*3/uL Nucleated RBC % (auto) 0.0 (0.0-0.2) /100WBC Hold Purple Top SEE NOTE Sodium 141 (135-145) mmol/L Potassium 4.3 (3.3-5.1) mmol/L Chloride 106 (96-108) mmol/L Carbon Dioxide 25 (22-29) mmol/L Anion Gap 14 (12-20) BUN 18 H (9-16) mg/dL Creatinine 1.02 (0.5-1.4) mg/dL Estim Creat Clear Calc 62.0 Estimated GFR > 60 Random Glucose 90 (60-115) mg/dL Calcium 9.9 (8.4-10.2) mg/dL Magnesium 2.0 (1.6-2.6) mg/dL Total Bilirubin 0.6 (0.0-1.0) mg/dL AST 23 (5-37) U/L ALT 20 (0-40) U/L Alkaline Phosphatase 79 (39-117) U/L Troponin I High Sens < 2.7 (<3.5-35.0) ng/L Total Protein 8.0 (6.5-8.0) g/dL Albumin 4.7 (3.5-5.0) g/dL Independent Interpretation I performed an independent interpretation of an: EKG and Plain X-Ray Interpretation: My interpretation is in agreement with the radiologist's impression of this imaging study. L CLINICAL HISTORY: pain 4 view right shoulder Comparison: None Findings: No fractures or dislocations. No significant loss of joint space or osteophytes. Small bone island within the humeral head. No erosions. No radiopaque foreign body. IMPRESSION: 1. No acute findings This document has been electronically signed by: Chon Jones MD on 09/29/2024 12:18:05 Dictated By: Chon Jones MD Signed By: Electronically signed by Chon Jones MD 09/29/24 1218 I independently interpreted this EKG and am in agreement with the below findings: Vent. Rate: 70 BPM Atrial Rate: 70 BPM P-R Int: 200 ms QRS Dur: 86 ms QT Int: 414 ms P-R-T Axes: 68 -33 55 degrees QTcB Int: 447 ms Normal sinus rhythm Left axis deviation When compared with ECG of 15-Apr-2024 10:20, No significant change was found DD/ [id number] Radiology Impression Discussion of test interpretation with radiology: I have reviewed the radiologist's reading. Prescription Management I considered prescription management with: Pain Medication (patient prescribed pain medication) Discharge Plan Discharge Clinical Impression: Rotator cuff disorder Patient Disposition: Home, Self-Care Instructions: Rotator Cuff Injury (ED), Rotator Cuff Injury Exercises (DC) Additional Instructions: Follow up with your primary care provider and an orthopedic provider. Return to the emergency department immediately if your symptoms worsen or if you develop any dizziness, shortness of breath, difficulty breathing, chest pain, blurry vision, loss of vision, nausea, vomiting, abdominal pain, fever, chills, back pain, or any other complaints. Prescriptions: New prednisone 20 mg tablet See Rx Instructions .ROUTE .COMPLEX 12 Days Qty: 26 0RF Rx Instructions: 20 mg orally, Take 3 tablets for 5 days THEN; Take 2 tablets for 4 days THEN; Take 1 tablet for 3 days No Action Narcan 4 mg/actuation spray,non-aerosol 4 mg intranasal Q3M PRN (Reason: opioid overdose) Qty: 2 0RF Rx Instructions: spray 1 dose into ONE nostril; alternate nostrils w each dose until help arrives prednisone 20 mg tablet 40 mg PO DAILY 5 Days Qty: 10 0RF Referrals: [facility] [Provider Group] (Call to establish and follow up with an orthopedic provider. ) Trevor Gray III, MD [Primary Care Provider] - Interventions: ED Discharge Assessment Last Done: 09/29/24 14:18 Discharge Date/Time: 09/29/24 14:18 Print Language: Malay
--- NOTE | 2024-09-29 11:07 | ECG_ITS ---
Test Reason : SHOULDER PAIN Blood Pressure : */* mmHG Vent. Rate : 70 BPM Atrial Rate : 70 BPM P-R Int : 200 ms QRS Dur : 86 ms QT Int : 414 ms P-R-T Axes : 68 -33 55 degrees QTcB Int : 447 ms Normal sinus rhythm Normal EKG When compared with ECG of 15-Apr-2024 10:20, No significant change was found Referred By: Cadence Canchola Electronically Signed By: RICO PINK
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
--- OUTSIDE RECORDS SUMMARY | 2024-09-29 11:22 | XMS_ITS | Encounter Summary ---
Author Organization [facility] Address [id number] [place] [phone] Care Team Providers Care Granulator Name Role Phone Trevor Gray MD Primary Care Provider [phone] Reason for Visit * Auth/Cert (Routine) Specialty Diagnoses / Procedures Referred By Jack hopper Referred To Contact Diagnoses Other specified postprocedural states Procedures COLONOSCOPY [facility] [id number] [place] [phone] [facility] Endoscopy [address] [place] [address] Phone: tel: Referral ID Status Reason Start Date Expiration Date Visits Re quested Visits Authorized [id number] 1 1 Encounter Details Date Type Department Care Team (Late st Contact Info) Description 08/31/2024 9:45 AM EST Anesthesia Event [facility] Endoscopy [address] [place] [address] Matt Flores MD [address] [place] [address] Anesthesia Record Procedure Summary Procedure Name Responsible Anesthesiologist Anesthesia Start Time Anesthesia Stop Time COLONOSCOPY Matt Flores MD 08/31/24 0945 08/31/24 1019 Events Date Time Event Comment 08/31/2024 0914 0945 An Start 0946 An Start Data The patient wa s reevaluated immediately before moderate or deep sedation use and before anesthesia induction. 0946 In Room 0951 Anesthesia Ready 1013 an stop data 1013 Out of Room 1019 Handoff to RN I completed my handoff to the receiving nurse during which we: 1. Identified the patient 2. Identified the responsible provider 3. Reviewed the pertinent medical history 4. Discussed the surgical course 5. Reviewed intra-op anesthesia management and issues during anesthesia 6. Set expectations for post-procedure period 7. Allowed opportunity for questions and acknowledgement of understanding. 1019 An Stop Meds Name Total propofol (DIPRIVAN) injection 10 mg/mL 1 40 mg lidocaine PF (XYLOCAINE-MPF) local injec tion 2% 80 mg lactated Ringer's infusion 500 mL * Agents No agents on file. * Blood No blood administrations on file. Lines, Drains, and Airways Type Details Placement Removal Peripheral IV Placement Date: 08/09 11/30; Placement Time: 907; Catheter Size: 20 G; Orientation: Posterior, Right; Location: Hand; Insertion Attempts: 1; Patient Tolerance: Tolerated well; Removal Date: 08/31/24; Removal Time: 10208/31/24 0908 by Leatha Babin RN 08/31/24 102 by Ciarra England RN documented in this encounter Social History Tobacco Use Types Packs/Day Years [...] on file documented as of this encounter Progress Notes * Amol Soto CRNA - 08/31/2024 10:32 AM EST Patient: Franklin Mcnair Procedure Summary Date: 08/31/24 Room / Location: [facility] Endoscopy Anesthesia Start: 944 Anesthesia Stop: 1018 Procedure: COLONOSCOPY Diagnosis: History of colonoscopy with polypectomy (Screening for colorectal malignant neoplasm) Scheduled Providers: Elvin Santiago MD; Matt Flores MD; Amol Soto CRNA Responsible Provider: Matt Flores MD Anesthesia Type: MAC ASA Status: 2 Anesthesia Plan: MAC Last Vitals: Vitals Value Taken Time BP 124/73 08/31/24 1024 Temp 36 ??C (96.8 ??F) 08/31/24 1014 Pulse 76 08/31/24 1024 Resp 17 08/31/24 1024 SpO2 99 % 08/31/24 1024 No data recorded Anesthesia Post Evaluation Patient location during evaluation: PACU Patient participation: complete - patient participated Level of consciousness: awake and alert Pain score: 0 Airway patency: patent Anesthetic complications: no Cardiovascular status: acceptable, blood pressure returned to baseline, stable and hemodynamically stable Respiratory status: acceptable, nonlabored ventilation, spontaneous ventilation, unassisted and room air Hydration status: acceptable Nausea: No Vomiting: No There were no known notable events for this encounter. * Matt Flores MD - 08/31/2024 9:12 AM EST Relevant Problems Cardio (+) Hypertension Pulmonary (+) Mild persistent asthma without complication GI (+) GERD (gastroesophageal reflux disease) Clinical information reviewed: Allergies Meds Anesthesia Plan ASA 2 Anesthesia Plan: MAC Anesthesia Risks Discussed serious complications Anesthetic plan and risks discussed with patient. Anesthesia Evaluation No history of anesthetic complications Airway Mallampati: II Dental Comment: No teeth Pulmonary - normal exam (+) asthma Cardiovascular Exercise tolerance: good (+) hypertension (-) past NH, dysrhythmias Rhythm: regular Rate: normal Neuro/Psych (-) seizures, CVA GI/Hepatic/Renal (+) GERD, hepatitis C Endo/Other (-) diabetes mellitus Abdominal PONV RISK SCORE: 1 Vitals: 08/23/24 1000 08/31/24 0859 BP: 111/81 Pulse: 70 Resp: 16 Temp: 35.6 ??C (96 ??F) SpO2: 99% Weight: 65.8 kg (145 lb) 65.8 kg (145 lb) Height: 1.651 m (65 ) 1.651 m (65 ) SpO2 Readings from Last 1 Encounters: 08/31/24 99% No results found for: WBC , RBC , HGB , HCT , PLT , MCV Allergies Allergen Reactions Cephalexin Monohydrate Swelling Cephalexin Monohydrate-Polysorbate 80 Prochlorperazine Tongue swelling Valacyclovir Swelling STOP BANG: No data recorded NPO Status: Time of Last Solid: 0000 documented in this encounter Plan of Treatment Upcoming Encounters Date Type Department Care Team (Late st Contact Info) Description 10/30/2024 2:45 PM EDT Office Visit Adult Medicine [facility] [address] [place] [phone] Juan Levy PA [address] [place] [address] documented as of this encounter Visit Diagnoses Not on filedocumented in this encounter Administered Medications Inactive Administered Medications - up to 3 most recent administrations Medication Order MAR Action Action Date Dose Rate Site lactated Ringer's infusion intravenous, Continuous PRN, Starting on Tue08/31/24 at 0945, Anesthesia Intraprocedure New Bag 08/31/2024 9:45 AM EST lidocaine (PF) (XYLOCAINE-MPF) 2 % injection injection, As needed, Starting on Tue08/31/24 at 0951, Anesthesia Intraprocedure Given 08/31/2024 9:51 AM EST 80 mg propofoL (DIPRIVAN) injection intravenous, As needed, Starting on Tue08/31/24 at 0951, Anesthesia Intraprocedure Given 08/31/2024 10:07 AM EST 10 mg Given 08/31/2024 10:04 AM EST 10 mg Given 08/31/2024 9:59 AM EST 20 mg documented in this encounter Care Teams Granulator Relationship Specialty Start Date End Date Trevor Gray MD [address] [place] [phone] PCP - General Internal Medicine 03/11/21 documented as of this encounter
--- OUTSIDE RECORDS SUMMARY | 2024-09-29 11:22 | XMS_ITS | Clinical Summary ---
Author Organization [facility] Address [address] [place] [address] Phone Care Team Providers Care Physically Impaired Teacher Name Role Phone Trevor Gray MD Primary Care Provider [phone] Allergies Active Allergy Reactions Criticality Noted Date Comments Cephalexin Monohydrate Swelling Medium 02/28/2018 Cephalexin Monohydrate-Polysorbate 80 Prochlorperazine 12/27/2013 Tongue swelling Valacyclovir Swelling 06/01/2017 Medications albuterol 2.5 mg /3 mL (0.083 %) nebulizer solution Take 1 Vial by nebulization every 4 hours as needed for Wheezing, Shortness of Breath or Cough. 4 Active albuterol HFA (PROAIR HFA ; PROVENTIL HFA ; VENTOLIN HFA) 90 mcg/actuation inhaler Inhale 2 Puffs into the lungs every 4 hours as needed for Cough, Wheezing or Shortness of Breath. 4 Active citalopram (CeleXA) 20 mg tablet Take 1 tablet (20 mg total) by mouth 1 (one) time each day. Active pantoprazole (PROTONIX) 40 mg EC tablet Take 1 tablet (40 mg total) by mouth 1 (one) time each day. 4 Active CLONIDINE HCL ORAL Take by mouth as needed. Active ALPRAZOLAM ORAL Take by mouth as needed. Active amLODIPine (NORVASC) 10 mg tablet Take 1 tablet (10 mg total) by mouth 1 (one) time each day. 90 tablet 1 4 Active polyethylene glycol (Golytely) 236-22.74-6.74 -5.86 gram solution Take 4L by mouth once for one dose. May substitue any PEG. Starting at 6PM the night before your procedure drink 1 8oz glasses at your own pace until you complete half of the gallon. Finish 2nd half of the gallon 5 hours before your procedure. 4000 mL 5 Active bisacodyL (DULCOLAX) 5 mg EC tablet Take 2 tablets by mouth right before beginning bowel prep. See instructions provided by the office 2 tablet 5 Active cloNIDine (CATAPRES) 0.2 mg tablet Take 1 tablet (0.2 mg total) by mouth 1 (one) time each day. Active ALPRAZolam XR (XANAX XR) 2 mg 24 hr tablet Take 1 tablet (2 mg total) by mouth 1 (one) time each day in the morning. Do not crush, chew, or split. Max Daily Amount: 2 mg Active sildenafiL (VIAGRA) 50 mg tablet Take 1 tablet (50 mg total) by mouth 1 (one) time each day if needed for erectile dysfunction. 10 tablet 1 5 Active sildenafiL (VIAGRA) 50 mg tablet Take 1 tablet (50 mg total) by mouth 1 (one) time each day if needed. 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 Right upper quadrant abdominal pain 03/02/2019 Chronic bilateral low back pain with bilateral s ciatica 12/21/2017 Mild persistent asthma without complication 12/06 Dyslipidemia 04/05/2014 Depression with anxiety 04/01/2014 PTSD (post-traumatic stress disorder) 04/01/2014 GERD (gastroesophageal reflux disease) 4 History of substance abuse 04/01/2014 Overview (06/25/2024): IV drug use heroin/cocaine and marijuana use in the past. Rectal prolapse 04/01/2014 Encounters Date Type Department Care Team Description 08/31/2024 9:45 AM EST Anesthesia Event [facility] Endoscopy [address] [place] [phone] Matt Flores MD 08/31/2024 8:04 AM EST - 08/31/2024 11:59 PM EST Hospital Encounter [facility] Endoscopy [address] [place] [phone] Elvin Santiago MD Claudio, Raymund, CRNA History of colonoscopy with polypectomy Discharge Disposition: Home or Self Care from Last 3 Months Immunizations Name Administration Dates Next Due Pneumococcal polysaccharide 23 valent (Pneumovax 23) 2yo and older 01/22/2019 Surgical History Surgery Date Site/Laterality Comments OTHER SURGICAL HISTORY PROCEDURE: GA ANES HRNA RPR UPR ABD LMBR&VNT HERNIA&/DEHSN OTHER SURGICAL HISTORY PROCEDURE: GA PROCTOPEXY ABDOMINAL APPROACH OTHER SURGICAL HISTORY PROCEDURE: GA REVJ ILEOSTOMY COMPLIC RCNSTJ IN-DEPTH SPX COLONOSCOPY 04/11/2018 PROCEDURE: HISTORICAL COLONOSCOPY; COMMENT: 5 mm tubular adenoma x 1. UPPER GASTROINTESTINAL ENDOSCOPY 04/11/2018 PROCEDURE: GA UPPER GI ENDOSCOPY PERFORMED; COMMENT: reactive gastritis, bx negative for H. pylori. UPPER GASTROINTESTINAL ENDOSCOPY 06/02/2017 PROCEDURE: GA UPPER GI ENDOSCOPY PERFORMED; COMMENT: Neal@[facility]; large 6 cm duodenal diverticulum. Medical History Medical History Date Comments Hepatitis C DX:Hepatitis C Asthma DX:Asthma Depression with anxiety 04/01/2014 DX:Depre ssion with anxiety PTSD (post-traumatic stress disorder) 04/01/2014 DX:PTSD (post-traumatic stress disorder) History of substance abuse (CMS/HCC) 04/01/2014 DX:History of substance abuse (HCC); COMMENT: IV drug use heroin/cocaine and marijuana use in the past. 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 Esophageal dysmotility DX:Esopha geal dysmotility Family History Medical History Relation Name Comments Hypertension Mother Diabetes Paternal Grandmother Other: joint pains Sister Relation Name Status Comments Father Alive Maternal Grandfather Maternal Grandmother Mother Alive Paternal Grandfather Paternal Grandmother Sister Alive Social History Tobacco Use Types Packs/Day Years Used Date Smoking Tobacco: Former Smokeless Tobacco: Former Tobacco Cessation:Counseling Given: Not Answered Alcohol Use Standard Drinks/Week Comments No 0 (1 standard drink = 0.6 oz pur e alcohol) Interpersonal Safety Answer Date Record ed Physical Abuse 08/31/2024 Verbal Abuse 08/31/2024 Sex and Gender Information Value Date Recorded Sex Assigned at Not on file Legal Sex Male 5:07 AM EST Gender Identity Not on file Sexual Orientation Not on file Obstetrics History Last Filed Vital Signs Vital Sign Reading [...] Mass Index 24.13 08/31/2024 8:59 AM EST Plan of Treatment Upcoming Encounters Date Type Department Care Team (Late st Contact Info) Description 10/30/2024 2:45 PM EDT Office Visit Adult Medicine [address] [phone] Juan Levy PA [address] [place] [phone] Health Maintenance Due Date Last Done Comments DTaP,Tdap,and Td Vaccines (1 - Tdap) 1980 Zoster Vaccines (1 of 2) 2011 Pneumococcal Vaccine: 50+ Years (2 of 2 - PCV) 01/23/2020 01/22/2019 Pneumococcal Vaccine: Pediatrics (0 to 5 Years) and At-Risk Patients (6 to 64 Years) (2 of 2 - PCV) 01/23/2020 01/22/2019 RSV Immunization Patients 60 + Years Old (1 - Risk 60-74 years 1-dose series) 2021 HIV Screening 07/17/2022 Social Influencers of Health Screening 07/17/2022 COVID-19 Vaccine (3 - 2023-2 5 season) 2024 07/15/2021, 11/12/2020 Influenza Vaccine (#1) 2024 Hypertension/CHF/CAD Annual BMP Blood Test 05/24/2024 05/24/2023 Depression Screening 03/21/2025 03/21/2024 Cholesterol Screening (Lipid Panel) 05/24/2028 05/24/2023 Colorectal Cancer Screening: Colonoscopy 08/31/2029 08/31/2024, 04/11/2018 Hepatitis C Screening Completed 07/24/2015 HIB Vaccines Aged Out No longer eligi ble based on patient's age to complete this topic HPV Vaccines Aged Out No longer eligi ble based on patient's age to complete this topic Hepatitis A Vaccines Aged Out No long er eligible based on patient's age to complete this topic Hepatitis B Vaccines Aged Out No long er eligible based on patient's age to complete this topic IPV Vaccines Aged Out No longer eligi ble based on patient's age to complete this topic MMR Vaccines Aged Out No longer eligi ble based on patient's age to complete this topic Meningococcal ACWY Vaccine Aged Out N o longer eligible based on patient's age to complete this topic Meningococcal B Vacine Aged Out No lo nger eligible based on patient's age to complete this topic RSV Immunization Patients Under 20 months Aged Out No longer eligible b ased on patient's age to complete this topic Varicella Vaccines Aged Out No longer eligible based on patient's age to complete this topic Procedures Procedure Name Priority Date/Time Associated Diagnosis Comments COLONOSCOPY Routine 08/31/2024 10:13 AM EST History of colonoscopy with polypectomy DEPRESSION SCREENING Routine 03/21/2024 ANNUAL BMP BLOOD TEST Routine 05/24/2023 LIPID PANEL Routine 05/24/2023 HEPATITIS C SCREENING Routine 07/24/2015 from Last 3 Months or Most Recently Relevant to Health Maintenance Results * COLONOSCOPY Anesthesia - MAC; [facility] ENDOSCOPY (08/31/2024 10:13 AM EST) Anatomical Region [...] ? purposes. Narrative 08/31/2024 10:16 AM EST [facility] GI Patient Name: Franklin Mcnair Procedure Date: [...] verified by the physician, the nurse, the pony edger ? and the aviation safety technician in the pre-procedure area in the [...] neoplasm ? of colon CPT copyright 2020 [employer]. All rights reserved. The codes documented in this report are preliminary and upon telephone diaphragm assembler review may be revised to meet current compliance requirements. Elvin Santiago MD 08/31/2024 10:16:24 AM This report has been signed electronically.Elvin Santiago MD Number of Addenda: 0 Note Initiated On: 08/31/2024 9:50 AM Scope Withdrawal Time: 0 hours 12 minutes 47 seconds Scope In: 9:53:07 AM Scope Out: 10:11:43 AM ? Endoscopy Department at [facility] - [address] [place] [address], ? [place] [address] Procedure Note Elvin Santiago MD - 08/31/2024 [facility] GI Patient Name: Franklin Mcnair Procedure Date: [...] the physician, the nurse, theanesthetist and the aviation safety technician in the pre-procedure area in the [...] for malignantneoplasm of colon CPT copyright 2020 [employer]. All rights reserved. The codes documented in this report are preliminary and upon telephone diaphragm assembler reviewmay be revised to meet current compliance requirements. Elvin Santiago MD 08/31/2024 10:16:24 AM This report has been signed electronically.Elvin Santiago MD Number of Addenda: 0 Note Initiated On: 08/31/2024 9:50 AM Scope Withdrawal Time: 0 hours 12 minutes 47 seconds Scope In: 9:53:07 AM Scope Out: 10:11:43 AM Endoscopy Department at [address] [phone] IMPRESSION: - Diverticulosis in the sigmoid colon. There was no evidence of diverticular bleeding. - Internal hemorrhoids. - The examination was otherwise normal. - No specimens collected. Recommendation: - Discharge patient to home. - Repeat colonoscopy in 10 years for screening purposes. Result [facility] Elvin Santiago MD GI~PROCEDURE ORDERABLES Fin al Result * Depression Screening (03/21/2024) [facility] Depression Screening abstracted Result [facility] Provider HEALTH MAINTENANCE Final Result * Annual BMP Blood Test (05/24/2023) [facility] Annual BMP Blood Test abstracted Result [facility] Provider HEALTH MAINTENANCE Final Result * (ABNORMAL) Lipid panel (05/24/2023) [facility] LDL/HDL Ratio 5(A) 0 - 4 Triglycerides 136 0 - 150 mg/dL Cholesterol 201(A) 0 - 200 mg/dL HDL 45 >=40 mg/dL LDL Cholesterol 129(A) 0 - 100 mg/dL Blood Venous blood specimen / Unknown Result [facility] Historical Provider LAB BLOOD ORDERABLES Elvia l Result * Hepatitis C Screening (07/24/2015) [facility] Hepatitis C Screening abstracted Result [facility] Provider HEALTH MAINTENANCE Final Result from Last 3 Months or Most Recently Relevant to Health Maintenance Insurance [facility] [employer] Care Teams Physically Impaired Teacher Relationship Specialty Start Date End Date Trevor Gray MD [address] [place] [phone] PCP - General Internal Medicine 03/11/21
[2024-09-29 11:40] LABS: Alanine Aminotransferase 20 U/L (0-40); Albumin Level 4.7 g/dL (3.5-5.0); Alkaline Phosphatase 79 U/L (39-117); Anion Gap 14 (12-20); Aspartate Amino Transferase 23 U/L (5-37); Bilirubin Total 0.6 mg/dL (0.0-1.0); Blood Urea Nitrogen 18 mg/dL (9-16); Calcium 9.9 mg/dL (8.4-10.2); Carbon Dioxide 25 mmol/L (22-29); Chloride 106 mmol/L (96-108); Estimated Glomerular Filt Rate > 60; Glucose Random 90 mg/dL (60-115); Potassium 4.3 mmol/L (3.3-5.1); Sodium 141 mmol/L (135-145)
[2024-09-29 11:46] LABS: Troponin-I High Sensitivity < 2.7 ng/L (<3.5-35.0)
[2024-09-29 13:02] LABS: MANUAL DIFF FLAG NO
[2024-09-29 13:04] LABS: Basophils Percent Auto 0.2 % (0-2); Eosinophils Percent Auto 0.3 % (0-4); Hematocrit 44.8 % (42.0-52.0); Hemoglobin 16.4 g/dl (14.0-18.0); Imm Gran Abs Auto 0.02 X10*3/uL (0.00-0.03); Imm Gran Pct Auto 0.3 % (0.0-0.4); Lymphocytes Absolute Auto 1.5 X10*3/uL (1.2-4.9); Lymphocytes Percent Auto 23.9 % (20-40); Mean Corpuscular HGB Conc 36.6 g/dl (31.0-36.0); Mean Corpuscular Hemoglobin 31.5 pg (27.0-33.0); Mean Corpuscular Volume 86.2 fL (80.0-98.0); Mean Platelet Volume 9.4 fL (9.4-12.4); Monocytes Absolute Auto 0.4 X10*3/uL (0.1-1.2); Monocytes Percent Auto 6.3 % (2-11); Neutrophils Absolute Auto 4.4 x10*3/uL (2.0-8.3); Platelet Count 160 X10*3/uL (160-400); Red Cell Distribution Width 12.4 % (11.0-16.0); White Blood Count 6.4 X10*3/uL (4.8-10.8)
[2024-09-29 14:18] VITALS: BP 169/105; PULSE 72; RESP 18; TEMP 36.6; O2SAT 98
== END 2024-09-29 14:18 | disposition home or self-care (01) ==
PROVIDERS: Physician Assistant Medical; Emergency Provider Emergency Medicine; PCP Internal Medicine
DX: M75.101 Unspecified rotator cuff tear or rupture of right shoulder, not specified as traumatic (principal)
CPT/HCPCS: 36415; 73030; 80053; 83735; 84484; 85025; 93005; 99283

== ENCOUNTER → 2024-09-29 11:07 | Outpatient (BNV) | payer OTHER, SELFPAY | PROVIDERS: Emergency Provider Emergency Medicine; PCP Internal Medicine; Visit Provider Internal Medicine | DX: M25.519 Pain in unspecified shoulder (principal) | CPT/HCPCS: 93010 ==

== ENCOUNTER → 2024-09-29 11:07 | Outpatient (BNV) | payer OTHER, SELFPAY | PROVIDERS: PCP Internal Medicine; Visit Provider Radiology Diagnostic Radiology | DX: M25.511 Pain in right shoulder (principal) | CPT/HCPCS: 73030 ==

== ENCOUNTER 2024-10-26 15:58 | Emergency (ER) | payer OTHER, SELFPAY ==
--- NOTE | ~2024-10-26 | XR_ITS ---
CLINICAL HISTORY: cough, sob 2 view chest x-ray. Comparison: CR/SR - XR CHEST 2V - 04/15/24 09:36 EDT Findings: The lungs are adequately expanded. No focal consolidation. No effusion or pneumothorax. Cardiac and mediastinal contours are within normal limits. No acute osseous abnormality Impression: No acute process. This document has been electronically signed by: Juaquin Bains MD on 10/26/2024 17:56:29
[2024-10-26 16:49] VITALS: BP 162/91; PULSE 68; RESP 16; TEMP 36.9; O2SAT 95; BMI 23.4
--- NOTE | 2024-10-26 16:49 | ED_ITS ---
HPI - URI/Sore Throat General Chief Complaint: Upper Respiratory Symptoms Stated Complaint: coughing headache asthma Time Seen by Provider: 10/26/24 21:04 Source: patient Mode of arrival: ambulatory Limitations: no limitations History of Present Illness ED Provider: AMANDA MATA PA-C HPI Narrative: 64 year old male with pmhx significant for substance abuse, asthma/ COPD, HTN presents to the ED today for evaluation of dry cough, headache, myalgias, congestion, and SOB x2 weeks. Also endorses difficulty sleeping secondary to cough. He has been using his home inhaler without relief. Denies recent steroid use. Denies recent travel or long car rides. Denies fevers, chills, sore throat, chest pain, wheezing, hemoptysis, LE pain/swelling. No known sick contacts. He is noted to be hypertensive. He is asymptomatic. Reports taking his BP meds this morning. He states his blood pressure always rises when he is in the ED as he becomes stressed. He is compliant with all of his home meds. Related Data Previous Rx's ?Medication ?Instructions ?Recorded naloxone 4 mg/actuation nasal 4 mg intranasal Q3M PRN opioid 07/20/21 spray (Narcan) overdose #2 ea prednisone 20 mg tablet 40 mg (2 x 20 mg) PO DAILY 5 days 04/15/24 #10 tabs prednisone 20 mg tablet See Rx Instructions .Route 09/29/24 .COMPLEX 12 days #26 tabs benzonatate 100 mg capsule 100 mg PO BID PRN cough #20 caps 10/26/24 prednisone 20 mg tablet 40 mg (2 x 20 mg) PO DAILY 4 days 10/26/24 #8 tabs Allergies Allergy/AdvReac Type Severity Reaction Status Date / Time cephalexin [From KEFLEX] Allergy Intermediate HIVES Verified 10/26/24 16:49 sulfamethoxazole Allergy Intermediate HIVES Verified 10/26/24 16:49 [From BACTRIM] trimethoprim [From BACTRIM] Allergy Intermediate HIVES Verified 10/26/24 16:49 prochlorperazine Allergy Unknown ANAPHYLAXIS Verified 10/26/24 16:49 [From COMPAZINE] Review of Systems Review of Systems: Yes all other systems are reviewed and are negative PMFSH Past Medical History Attestation statement: The following information was validated with the patient. Source: old records reviewed and nursing notes reviewed Medical History Substance abuse Social History Social History Alcohol intake: never Smoked in Last 30 Days: No Use of substances other than those prescribed or required for medical reasons: No Substance Use Type: Heroin Advance Directives: No Advance Directives Information Provided: No Physical Exam Vital Signs: Vital Signs: Last Vital Signs Temp 96.8 F 10/26/24 21:24 Pulse 63 10/26/24 21:24 Resp 16 10/26/24 21:24 BP 197/105 H 10/26/24 21:24 Pulse Ox 97 10/26/24 21:24 O2 Del Method Room Air 10/26/24 21:24 BMI result Body Mass Index 23.4 hypertensive, vitals otherwise wnl General: Well appearing, in no acute distress. Skin: Warm, dry, intact. No rashes or lesions. Head: Normocephalic, atraumatic. EENT: Hearing is intact b/l. Conjunctiva clear. PERRLA. EOM intact. Moist mucous membranes.? Neck: Supple without LAD Cardiac: Chest wall symmetric. RRR. no JVD. Lungs: Normal respiratory effort without accessory muscle use. Dry cough. CTA bilaterally, no adventitious breath sounds. Abdomen: Soft, non-tender, non-distended. No rebound tenderness or guarding. Positive BS x4. Ext: Upper and lower extremities atraumatic, without tenderness, deformity, swelling or erythema. no pitting edema. Neuro: AOx3. Normal speech. Ambulating with steady gait. Psych: Appropriate mood and affect. Responds appropriately to questions. Course Course Course Narrative: This is a Rapid Medical Exam performed in triage by Lacey Clemente PA-C. Full HPI, ROS and PE to be performed by primary ED provider. 64-year-old male with a past medical history of substance abuse, asthma/COPD, HTN presenting to the ED c/o cough, OHARA, CP when coughing, myalgias, congestion, & SOB x2 weeks. +insomnia. Has been using inhaler w/o relief denies recent steroid use PE: dry cough noted. lungs CTA. Talking in complete sentences. Ambulating with steady gait Plan: SARs, CXR Reevaluation(s) Reevaluation #1: Negative COVID, flu, RSV. Chest x-ray does not show pneumonia. Presentation not consistent with COPD exacerbation. No increased dyspnea, sputum production. No fever. Possible patient recently had a viral infection and now has a lingering cough. Will send Tessalon and prednisone to pharmacy for treatment. He was also noted to be hypertensive, gradually increasing since arrival. Most recent BP 197/105. He does report compliance with amlodipine at home. He took this this morning prior to arrival in the ED. he states that his blood pressure tends to rise as he becomes anxious and stressed. On review of previous vitals, he tends to live around the 190s/110s. denies headache, chest pain, palpitations, vision changes, dizziness at this time. he states he does not wish to wait in the ED any longer for me to administer another dose of amlodipine. advised to continue monitoring BP at home. advised f/u w/ PCP. Patient has remained stable throughout ED visit today. Discussed worrisome signs and symptoms and when to return to the ED. All questions answered at this time. Patient is agreeable with disposition and stable for discharge. Medications Administered Discontinued Medications Generic Name Dose Route Start Last Admin Trade Name Freq PRN Reason Stop Dose Admin Benzonatate 200 mg 10/26/24 21:11 10/26/24 21:23 Benzonatate 100 Mg Capsule PO 10/26/24 21:12 200 mg ONCE ONE Administration Prednisone 40 mg 10/26/24 21:11 10/26/24 21:23 Prednisone 20 Mg Tablet PO 10/26/24 21:12 40 mg ONCE ONE Administration Medical Decision Making Medical Decision Making MDM Narrative: 64 year old male with pmhx significant for substance abuse, asthma/ COPD, HTN presents to the ED today for evaluation of dry cough, headache, myalgias, congestion, and SOB x2 weeks. vital signs notable for hypertension. otherwise wnl. not hypoxic. he is nontoxic appearing and in NAD. on exam, dry cough noted. no respiratory distress. lungs are CTA b/l without adventitious breath sounds. No pitting edema. No JVD. RRR. Differential diagnosis includes viral syndrome, bronchitis, pneumonia, asthma exacerbation Presentation not consistent with chronic causes of cough (including GERD, postnasal discharge, CHF, lung cancer or mass). Unlikely COPD exacerbation, medication SE (no YESENIA/ARB). Unlikely PE, ACS, arrhythmia, AAA. Plan: viral testing, CXR, supportive care, reassessment Differential Diagnosis Differential Diagnoses: The differential diagnosis associated with the presentation includes as above. Admission/Observation Not indicated Lab Data MDM Lab Attestation statement: I reviewed the patient's lab results. As above Labs: Lab Results 10/26/24 Range/Units 18:54 Influenza Type A (PCR) NEGATIVE (Negative) Influenza Type B (PCR) NEGATIVE (Negative) RSV RNA Qual (PCR) NEGATIVE (Negative) SARS-CoV-2 RNA (RT-PCR) NEGATIVE (Negative) Independent Interpretation I performed an independent interpretation of an: Plain X-Ray Interpretation: Chest x-ray without infiltrate or consolidation Radiology Impression Discussion of test interpretation with radiology: I have reviewed the radiologist's reading. Radiologist Impression: Procedure(s): XR chest 2V Accession Number(s): [id number] cc: Physician,Unknown ; Lacey Clemente~ CLINICAL HISTORY: cough, sob 2 view chest x-ray. Comparison: CR/SR - XR CHEST 2V - 04/15/24 09:36 EDT Findings: The lungs are adequately expanded. No focal consolidation. No effusion or pneumothorax. Cardiac and mediastinal contours are within normal limits. No acute osseous abnormality Impression: No acute process. This document has been electronically signed by: Juaquin Bains MD on 10/26/2024 17:56:29 External Record Review External record reviewed: Inpatient record Prescription Management I considered prescription management with: Other (Tessalon, prednisone) Chronic Conditions Patient?s care impacted by: Hypertension and Other (asthma/ copd) Social Determinants Patient?s care significantly limited by Social Determinants of Health including: Other Social Determinant of Health Critical Care Time Critical Care Time Critical Care Time: No Discharge Plan Discharge Clinical Impression: Viral upper respiratory illness Patient Disposition: Home, Self-Care Instructions: Viral Syndrome (ED) Additional Instructions: You tested negative for covid, flu, rsv. Your chest xray does not show pneumonia. I am sending prednisone, a steroid, to your pharmacy for you to take over the next 4 days. You recieved your first dose in ED today. Take your next dose tomorrow. I am also sending tessalon perles to your pharmacy for your cough. Follow up with PCP. Return with new or worsening symptoms. In the case of an emergency call 911. You were noted to have elevated blood pressure. Please keep a log of your blood pressures at home. Continue all home blood pressure medications as prescribed. Follow up with PCP. Return with any chest pain, headache, dizziness, vision changes (blurred or double vision). Prescriptions: New prednisone 20 mg tablet 40 mg PO DAILY 4 Days Qty: 8 0RF benzonatate 100 mg capsule 100 mg PO BID PRN (Reason: cough) Qty: 20 0RF No Action Narcan 4 mg/actuation spray,non-aerosol 4 mg intranasal Q3M PRN (Reason: opioid overdose) Qty: 2 0RF Rx Instructions: spray 1 dose into ONE nostril; alternate nostrils w each dose until help arrives prednisone 20 mg tablet 40 mg PO DAILY 5 Days Qty: 10 0RF prednisone 20 mg tablet See Rx Instructions .ROUTE .COMPLEX 12 Days Qty: 26 0RF Rx Instructions: 20 mg orally, Take 3 tablets for 5 days THEN; Take 2 tablets for 4 days THEN; Take 1 tablet for 3 days Referrals: Trevor Gray III, MD [Primary Care Provider] - Interventions: ED Discharge Assessment Last Done: 10/26/24 21:24 Discharge Date/Time: 10/26/24 21:25 Print Language: Ukrainian
[2024-10-26 19:47] LABS: Influenza A PCR NEGATIVE (Negative); Influenza B PCR NEGATIVE (Negative); Resp Syncy Virus RNA Qual PCR NEGATIVE (Negative); SARS COV2 PCR INHOUSE NEGATIVE (Negative)
[2024-10-26 21:08] VITALS: BP 197/105; PULSE 63; RESP 16; TEMP 36; O2SAT 97
[2024-10-26] MEDS: predniSONE 20 MG TABLET 40 MG PO (21:23)
[2024-10-26] MEDS: Benzonatate 100 MG CAPSULE 200 MG PO (21:23)
[2024-10-26 21:24] VITALS: BP 197/105; PULSE 63; RESP 16; TEMP 36; O2SAT 97
== END 2024-10-26 21:25 | disposition home or self-care (01) ==
PROVIDERS: Physician Assistant; Emergency Provider Emergency Medicine; PCP Internal Medicine
DX: J06.9 Acute upper respiratory infection, unspecified (principal); R05.9 Cough, unspecified; R51.9 Headache, unspecified; R06.02 Shortness of breath; J45.909 Unspecified asthma, uncomplicated; Z03.818 Encounter for observation for suspected exposure to other biological agents ruled out
CPT/HCPCS: 0241U; 71046; 99283; 99284

== ENCOUNTER → 2024-10-26 16:52 | Outpatient (BNV) | payer OTHER, SELFPAY | PROVIDERS: Visit Provider Radiology Vascular & Interventional Radiology | DX: R05.9 Cough, unspecified (principal); R06.02 Shortness of breath | CPT/HCPCS: 71046 ==

== ENCOUNTER 2024-11-07 13:43 | Outpatient (AMB) | payer OTHER, SELFPAY ==
[2024-11-07 14:02] VITALS: BMI 23.3
--- NOTE | 2024-11-07 14:02 | A.OFFVIS_ITS ---
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 Patient was seen at [facility] on 09/29/24 due to ongoing shoulder pain for a few months ago, x-rays were taken and he was referred to orthopedics. Patient reports that he woke up with shoulder pain, denies injury. His pain as well as numbness and tingling travels down his arm to his elbow. He finds most relief with Tyelnol. No previous tx. 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 The duration of the pain is noted to be approximately two to three weeks with no marked change in intensity, remaining constant during this time frame. The pain was not attributed to any significant inciting events or trauma. The patient reports habitual sleeping with the arm elevated, possibly contributing to discomfort, although he does not associate the pain with any specific activity, indicating no recent heavy lifting or repetitive motion. Symptoms include occasional discomfort while performing overhead activities and during rotational or twisting movement of the arm, with noted tenderness at a specific point on the arm. The patient's condition has not improved or worsened since onset. [facility] Medical History Substance abuse Social History (Updated 11/07/24 @ 14:08 by YADIRA Paul) Alcohol intake: never Patient Tobacco Use Status: Never used Tobacco Substance Use Type: Heroin Current occupational status: unemployed Current occupation: right hand dominant Review of Systems Const All systems reviewed & are unremarkable except as noted in HPI and below Physical Exam Vital Signs: BMI result Body Mass Index 23.3 Extrem Other: right shoulder normal to inspection. Tenderness over the bicipital groove and along deltoid region of the shoulder. FF to 175, ER to 90, IR to S1. 5/5 RTC strength, negative collado, cross body abduction. NVI. Results Reviewed Results Reviewed: X-rays of the right shoulder obtained on 09/29/2024 are negative for any acute or chronic abnormalities. Assessment & Plan Assessment & Plan (1) Right shoulder tendinitis: Code(s): M77.8 - Other enthesopathies, not elsewhere classified Category: Medical Plan: I reviewed the diagnostic findings, including the normal X-ray results which showed no structural abnormalities such as fractures or arthritis. I discussed the diagnosis of tendinitis with the patient, explaining the nature of the condition and possible activities that could exacerbate it. Alternative treatment options such as anti-inflammatory medication and physical therapy were proposed, but the patient opted against them. After discussing the conservative approach of monitoring for symptom changes, the patient stated agreement with managing the condition non-invasively and returning for further evaluation only if necessary. Medications: Discontinued naloxone 4 mg/actuation (Narcan) spray 1 dose into ONE nostril; alternate nostrils w each dose until help arrives Discontinued Reason: Patient no longer taking 4 mg intranasal Q3M PRN 2 ea 0RF opioid overdose prednisone Discontinued Reason: Patient no longer taking 40 mg (2 x 20 mg) PO DAILY 5 days 10 tabs 0RF prednisone Discontinued Reason: Patient no longer taking 20 mg orally, Take 3 tablets for 5 days THEN; Take 2 tablets for 4 days THEN; Take 1 tablet for 3 days 12 days 26 tabs 0RF Coding Level of Care Code New Pt Level 3 (26354) Complex EM visit Add On G2211 Diagnoses Right shoulder tendinitis M77.8
--- OUTSIDE RECORDS SUMMARY | 2024-11-07 16:26 | XMS_ITS | Encounter Summary ---
Author Organization [facility] Address [address] [place] [address] Care Team Providers Care Machine Pack Assembler Name Role Phone Trevor Gray MD Primary Care Provider [phone] Reason for Visit * Reason Onset Date Comments Med Refill 11/02/2024 Encounter Details Date Type Department Care Team (Late st Contact Info) Description 11/02/2024 Telephone Adult Medicine [facility] [address] [place] [phone] Trevor Gray MD [address] [place] [id number] Med Refill Social History Tobacco Use Types Packs/Day Years [...] on file documented as of this encounter Ordered Prescriptions Prescription Sig Dispense Quantity Refills Last Filled Start Date End Date albuterol 2.5 mg /3 mL (0.083 %) nebulizer solution Take 1 Vial by nebulization every 4 hours as needed for Wheezing, Shortness of Breath or Cough. 75 mL 11/06/2024 documented in this encounter Progress Notes * GRETEL Barksdale - 11/06/2024 5:35 PM EDT Refill sent to pharmacy * Nayana Presley - 11/02/2024 10:25 AM EDT Refills on Current Medication List PATIENT IS CURRENTLY OUT OF MEDICATION MED NAME: albuterol 2.5 mg /3 mL (0.083 %) nebulizer solution PREFERRED PHARMACY: [facility] - [address] [phone] Patient would like script to be: E-PRESCRIBED/FAXED TO [facility] WHEN WAS THE PATIENT'S LAST APPOINTMENT IN ADULT MEDICINE? 06/26/2024 WHEN WAS THE LAST TIME THE PATIENT SAW THEIR PCP? Unknown Does patient have an upcoming appointment? Yes 11/15/2024 (THE MEDICATION REQUESTED IS ON THE MED LIST ABOVE) All of the medications requested were on the CURRENT MEDS list Did you check the Pharmacy information above?: yes Patient wants: 90-day supply Is this a mail order prescription request?: no If the refill is from a FAXED refill request what is the RX # listed on the fax? not applicable Patients current insurance carrier is: Payor: [employer] / Plan: [employer] / Product Type: *No Product type* / Insurance ID #: @[id number]@ documented in this encounter Plan of Treatment Upcoming Encounters Date Type Department Care Team ([facility] st Contact Info) Description 11/15/2024 11:30 AM EDT Office Visit Adult Medicine [address] [phone] Juan Levy PA [address] [place] [address] documented as of this encounter Visit Diagnoses Not on filedocumented in this encounter Discontinued Medications Medication Sig Discontinue Reason Start Date End Da te albuterol 2.5 mg /3 mL (0.083 %) nebulizer solution Take 1 Vial by nebulization every 4 hours as needed for Wheezing, Shortness of Breath or Cough. Reorder 03/21/2024 11/06/2024 documented as of this encounter Care Teams Machine Pack Assembler Relationship Specialty Start Date End Date Trevor Gray MD [address] [place] [address] PCP - General Internal Medicine 03/11/21 documented as of this encounter
--- OUTSIDE RECORDS SUMMARY | 2024-11-07 16:26 | XMS_ITS | Clinical Summary ---
Author Organization [facility] Address [address] [place] [address] Phone Care Team Providers Care Lane Marker Installer Name Role Phone Trevor Gray MD Primary Care Provider [phone] Allergies Active Allergy Reactions Criticality Noted Date Comments Cephalexin Monohydrate Swelling Medium 02/28/2018 Cephalexin Monohydrate-Polysorbate 80 Prochlorperazine 12/27/2013 Tongue swelling Valacyclovir Swelling 06/01/2017 Medications citalopram (CeleXA) 20 mg tablet Take 1 tablet (20 mg total) by mouth 1 (one) time each day. Active pantoprazole (PROTONIX) 40 mg EC tablet Take 1 tablet (40 mg total) by mouth 1 (one) time each day. 01/23/20 24 Active CLONIDINE HCL ORAL Take by mouth as needed. Active ALPRAZOLAM ORAL Take by mouth as needed. Active amLODIPine (NORVASC) 10 mg tablet Take 1 tablet (10 mg total) by mouth 1 (one) time each day. 90 tablet 1 06/26/20 24 Active polyethylene glycol (Golytely) 236-22.74-6.74 -5.86 gram solution Take 4L by mouth once for one dose. May substitue any PEG. Starting at 6PM the night before your procedure drink 1 8oz glasses at your own pace until you complete half of the gallon. Finish 2nd half of the gallon 5 hours before your procedure. 4000 mL 08/17/19 25 Active bisacodyL (DULCOLAX) 5 mg EC tablet Take 2 tablets by mouth right before beginning bowel prep. See instructions provided by the office 2 tablet 08/17/19 25 Active cloNIDine (CATAPRES) 0.2 mg tablet Take [...] needed for erectile dysfunction. 10 tablet 1 09/25/19 25 Active albuterol HFA (PROAIR HFA ; PROVENTIL HFA ; VENTOLIN HFA) 90 mcg/actuation inhalerIndicatio ns:Mild persistent asthma without complication Inhale 2 puffs by mouth every 4 (four) hours if needed for wheezing or shortness of breath. 18 g 10/31/19 25 Active albuterol 2.5 mg /3 mL (0.083 %) nebulizer solution Take 1 Vial by nebulization every 4 hours as needed for Wheezing, Shortness of Breath or Cough. 75 mL 11/07/19 25 Active albuterol 2.5 mg /3 mL (0.083 %) nebulizer solution Take 1 Vial by nebulization every 4 hours as needed for Wheezing, Shortness of Breath or Cough. 03/21/20 24 025 Discontin ued(Reord er) albuterol HFA (PROAIR HFA ; PROVENTIL HFA ; VENTOLIN HFA) 90 mcg/actuation inhaler Inhale 2 Puffs into the lungs every 4 hours as needed for Cough, Wheezing or Shortness of Breath. 02/17/20 24 025 Discontin ued(Reord er) Active Problems Problem [...] Encounters Date Type Department Care Team Description 11/02/2024 Telephone Adult Medicine [address] [phone] Trevor Gray MD Med Refill 10/24/2024 Nurse Triage Adult Medicine [address] [phone] Trevor Gray MD Asthma 08/31/2024 9:45 AM EST Anesthesia Event [facility] [address] [place] [phone] Matt Flores MD 08/31/2024 8:04 AM EST - 08/31/2024 11:59 PM EST Hospital Encounter [facility] [address] [place] [phone] Elvin Santiago MD Claudio, Raymund, CRNA History of colonoscopy with polypectomy Discharge Disposition: Home or Self Care from Last 3 Months Immunizations Name Administration Dates Next Due Pneumococcal polysaccharide 23 valent (Pneumovax 23) 2yo and older 01/22/2019 Surgical History Surgery Date Site/Laterality Comments OTHER SURGICAL HISTORY PROCEDURE: NE ANES HRNA RPR UPR ABD LMBR&VNT HERNIA&/DEHSN OTHER SURGICAL HISTORY PROCEDURE: NE PROCTOPEXY ABDOMINAL APPROACH OTHER SURGICAL HISTORY PROCEDURE: NE REVJ ILEOSTOMY COMPLIC RCNSTJ IN-DEPTH SPX COLONOSCOPY 04/11/2018 PROCEDURE: HISTORICAL COLONOSCOPY; COMMENT: 5 mm tubular adenoma x 1. UPPER GASTROINTESTINAL ENDOSCOPY 04/11/2018 PROCEDURE: NE UPPER GI ENDOSCOPY PERFORMED; COMMENT: reactive gastritis, bx negative for H. pylori. UPPER GASTROINTESTINAL ENDOSCOPY 06/02/2017 PROCEDURE: NE UPPER GI ENDOSCOPY PERFORMED; COMMENT: Pamela@[facility]; large 6 cm duodenal diverticulum. 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 Rectal prolapse 04/01/2014 DX:Rectal prolap se GERD (gastroesophageal reflu x disease) 04/01/2014 DX:GERD (gastroesophageal re flux disease) History of colonoscopy 04/11/2018 DX:Histor y of colonoscopy; COMMENT: repeat 5 yrs; muslu Bile-induced gastritis DX:Bile-i nduced gastritis Duodenal diverticulum [...] Care Team (Late st Contact Info) Description 11/15/2024 11:30 AM EDT Office Visit Adult Medicine [facility] [address] [place] [phone] Juan Levy PA [address] [place] [address] Health Maintenance Due Date Last Done Comments DTaP,Tdap,and Td Vaccines (1 - Tdap) 1980 Zoster Vaccines (1 of 2) 2011 Pneumococcal Vaccine: 50+ Years (2 of 2 - PCV) 01/23/2020 01/22/2019 Pneumococcal Vaccine: Pediatrics (0 to 5 Years) and At-Risk Patients (6 to 64 Years) (2 of 2 - PCV) 01/23/2020 01/22/2019 RSV Immunization Adult Patients (1 - Risk 60-74 years 1-dose series) 2021 HIV Screening 07/17/2022 Social Influencers of Health Screening 07/17/2022 COVID-19 Vaccine (3 - 2023-2 5 season) 2024 07/15/2021, 11/12/2020 Hypertension/CHF/CAD Annual BMP Blood Test 05/24/2024 05/24/2023 Depression Screening 03/21/2025 03/21/2024 Influenza Vaccine (Season Ended) 2025 Cholesterol Screening (Lipid Panel) 05/24/2028 05/24/2023 Colorectal [...] Maintenance Results * COLONOSCOPY Anesthesia - MAC; [facility] (08/31/2024 10:13 AM EST) Anatomical [...] ? purposes. Narrative 08/31/2024 10:16 AM EST [facility] Patient Name: Franklin Mcnair Procedure Date: [...] verified by the physician, the nurse, the battery builder ? and the optics test technician in the pre-procedure area in the [...] neoplasm ? of colon CPT copyright 2020 [employer]. All rights reserved. The codes documented in this report are preliminary and upon security program manager review may be revised to meet current compliance requirements. Elvin Santiago MD 08/31/2024 10:16:24 AM This report has been signed electronically.Elvin Santiago MD Number of Addenda: 0 Note Initiated On: 08/31/2024 9:50 AM Scope Withdrawal Time: 0 hours 12 minutes 47 seconds Scope In: 9:53:07 AM Scope Out: 10:11:43 AM ? Endoscopy Department at [facility] - [address] [place] [address], ? [place] [address] Procedure Note Elvin Santiago MD - 08/31/2024 [facility] Patient Name: Franklin Mcnair Procedure Date: [...] the physician, the nurse, theanesthetist and the optics test technician in the pre-procedure area in the [...] for malignantneoplasm of colon CPT copyright 2020 [employer]. All rights reserved. The codes documented in this report are preliminary and upon security program manager reviewmay be revised to meet current compliance requirements. Elvin Santiago MD 08/31/2024 10:16:24 AM This report has been signed electronically.Elvin Santiago MD Number of Addenda: 0 Note Initiated On: 08/31/2024 9:50 AM Scope Withdrawal Time: 0 hours 12 minutes 47 seconds Scope In: 9:53:07 AM Scope Out: 10:11:43 AM Endoscopy Department at [facility] - [address] [place] [phone] IMPRESSION: - Diverticulosis in the sigmoid colon. There was no evidence of diverticular bleeding. - Internal hemorrhoids. - The examination was otherwise normal. - No specimens collected. Recommendation: - Discharge patient to home. - Repeat colonoscopy in 10 years for screening purposes. Elvin Santiago MD GI~PROCEDURE ORDERABLES Fin al Result * Depression Screening (03/21/2024) [facility] Depression Screening abstracted Historical Provider HEALTH MAINTENANCE Final Result * Annual BMP Blood Test (05/24/2023) [facility] Annual BMP Blood Test abstracted Historical Provider HEALTH MAINTENANCE Final Result * (ABNORMAL) Lipid panel (05/24/2023) [facility] LDL/HDL Ratio 5(A) 0 - 4 Triglycerides 136 0 - 150 mg/dL Cholesterol 201(A) 0 - 200 mg/dL HDL 45 >=40 mg/dL LDL Cholesterol 129(A) 0 - 100 mg/dL Blood Venous blood specimen / Unknown Historical Provider LAB BLOOD ORDERABLES Elvia l Result * Hepatitis C Screening (07/24/2015) Hepatitis C Screening abstracted us Historical Provider HEALTH MAINTENANCE Final Result from Last 3 Months or Most Recently Relevant to Health Maintenance Insurance [facility] [employer] Care Teams Lane Marker Installer Relationship Specialty Start Date End Date Trevor Gray MD [address] [place] [address] [phone] PCP - General Internal Medicine 03/11/21
--- OUTSIDE RECORDS SUMMARY | 2024-11-07 16:26 | XMS_ITS | Clinical Summary ---
Author Organization [facility] Address [address] [place] [address] Care Team Providers Care Erp Consultant Name Role Phone Unavailable Primary Care Provider Unavailabl e Social History Tobacco Use Types Packs/Day Years Used Date Smoking Tobacco: Never Assessed Sex and Gender Information Value Date Recorded Sex Assigned at Male 06/07/2022 10:15 AM EDT Legal Sex Male 10:15 AM EDT Gender Identity Choose not to disclose 10:15 AM EDT Sexual Orientation Choose not to disclose 2021 10:15 AM EDT Plan of Treatment Health Maintenance Due Date Last Done Comments CT Colonography 1961 Colonoscopy 1961 Colorectal Cancer Screening 1961 Depression Screening 1961 FIT DNA/Cologuard 1961 FIT 1961 FOBT 1961 Lipid Panel 1961 Sigmoidoscopy 1961 Alcohol/Substance Use Screening 1973 Tobacco Screening 1973 DTaP/Tdap/Td Vaccines (1 - Tdap) 1980 Zoster Vaccines (1 of 2) 2011 Pneumococcal Vaccine: 50+ Years (2 of 2 - PCV) 01/23/2020 01/22/2019 COVID-19 Vaccine (3 - 2023-2 5 season) 2024 07/15/2021, 11/12/2020 Influenza Vaccine (#1) 2024 RSV Patients and Patients Aged 60 years or older (1 - 1-dose 75+ series) 2036 Pneumococcal Vaccine: Pediatrics (0 to 5 Years) and At-Risk Patients (6 to 49) Years) Aged Out 01/22/2019 No longer eligible b ased on patient's age to complete this topic HIB Vaccines Aged Out No longer eligi [...] patient's age to complete this topic Meningococcal Vaccine Aged Out No rolan kvng eligible based on patient's age to complete this topic RSV under 20 months Aged Out No longe r eligible based on patient's age to complete this topic Rotavirus Vaccines Aged Out No longer eligible based on patient's age to complete this topic
== END 2024-11-07 15:20 | disposition home or self-care (01) ==
LOC: HO.HOS 13:43
PROVIDERS: PCP Internal Medicine; Visit Provider Physician Assistant
DX: M77.8 Other enthesopathies, not elsewhere classified (principal)
CPT/HCPCS: 99204; G2211

== ENCOUNTER → 2024-11-07 13:43 | Outpatient (BNVA) | payer OTHER, SELFPAY | PROVIDERS: PCP Internal Medicine; Visit Provider Physician Assistant | DX: M77.8 Other enthesopathies, not elsewhere classified (principal) | CPT/HCPCS: 99202 ==